=== PATIENT | male | born 1950 | race Caucasian/White ===

== ENCOUNTER 2019-05-29 08:46 | Outpatient (REF) | payer OTHER, MEDICARE, SELFPAY ==
[2019-05-29 22:50] LABS: ALT 77 U/L (12-78); AST 29 U/L (15-37); Albumin 4.4 g/dL (3.4-5.0); Alkaline Phosphatase 92 U/L (46-116); Anion Gap 10.6 mmol/L (3-11); BUN 8 mg/dL (7-18); Bilirubin, Direct 0.15 mg/dL (0.00-0.20); Bilirubin, Total 0.7 mg/dL (0.2-1.0); CO2 29.4 mmol/L (21.0-32.0); CREATININE 0.93 mg/dL (0.70-1.30); Calcium 9.3 mg/dL (8.5-10.1); Chloride 101 mmol/L (98-107); Glucose 110 mg/dL (70-100); Potassium 4.2 mmol/L (3.5-5.1); Sodium 141 mmol/L (136-145); Total Protein 8.1 g/dL (6.4-8.2)
[2019-05-29 23:11] LABS: Calculated LDL 80 mg/dL; Cholesterol 159 mg/dL (50-200); HDL Cholesterol 57 mg/dL (40-60); Triglyceride 114 mg/dL (30-150)
== END 2019-05-29 09:06 ==
LOC: NCHCN 08:46
PROVIDERS: PCP Internal Medicine; Visit Provider Internal Medicine
DX: I25.10 Atherosclerotic heart disease of native coronary artery without angina pectoris (principal); Z13.6 Encounter for screening for cardiovascular disorders; F10.10 Alcohol abuse, uncomplicated
CPT/HCPCS: 80053; 80061; 80076; 83721

== ENCOUNTER 2020-06-23 15:23 | Outpatient (REF) | payer OTHER, MEDICARE, SELFPAY ==
[2020-06-23 21:05] LABS: Bilirubin Negative (Negative); Blood Trace-intact (Negative); Clarity Clear (Clear); Glucose Negative (Negative); Ketones Negative (Negative); Leukocyte Esterase Negative (Negative); Nitrite Negative (Negative); Specific Gravity 1.025 (1.005-1.025); Urobilinogen 0.2 EU/dL (Up TO 0.2)
[2020-06-23 21:11] LABS: Bacteria Negative HPF (Negative); C & S Indicated? No; Casts Negative LPF (Negative); Crystals Negative HPF (Negative); Epithelial Cells Rare HPF (Negative); Mucus Trace (Negative); WBC Negative HPF (0-5)
[2020-06-23 21:17] LABS: Hemoglobin A1C 5.5 % (<5.7)
[2020-06-23 21:32] LABS: ALT 31 U/L (16-63); AST 22 U/L (15-37); Albumin 4.4 g/dL (3.4-5.0); Alkaline Phosphatase 90 U/L (46-116); Anion Gap 7.5 mmol/L (3-11); BUN 11 mg/dL (7-18); Bilirubin, Total 0.6 mg/dL (0.2-1.0); CO2 30.5 mmol/L (21.0-32.0); CREATININE 0.88 mg/dL (0.70-1.30); Calcium 9.2 mg/dL (8.5-10.1); Calculated LDL 77 mg/dL (<100); Chloride 103 mmol/L (98-107); Cholesterol 152 mg/dL (<200); Glucose 103 mg/dL (74-106); HDL Cholesterol 53 mg/dL (40-60); Sodium 141 mmol/L (136-145); Total Protein 7.9 g/dL (6.4-8.2); Triglyceride 112 mg/dL (<150)
[2020-06-24 18:40] LABS: PSA, Screening 0.5 ng/mL (0.0-4.5)
== END 2020-06-23 15:43 ==
LOC: NCHCN 15:23
PROVIDERS: PCP Internal Medicine; Visit Provider Internal Medicine
DX: R73.9 Hyperglycemia, unspecified (principal); I25.10 Atherosclerotic heart disease of native coronary artery without angina pectoris; M54.5 Low back pain; G20 Parkinson's disease; Z12.5 Encounter for screening for malignant neoplasm of prostate; R39.9 Unspecified symptoms and signs involving the genitourinary system
CPT/HCPCS: 80053; 80061; 84153; 81003; 81015; 83036

== ENCOUNTER 2021-05-11 08:58 | Outpatient (REF) | payer MEDICARE, SELFPAY ==
[2021-05-11 16:01] LABS: ALT 26 U/L (16-63); AST 14 U/L (15-37); Albumin 3.7 g/dL (3.4-5.0); Alkaline Phosphatase 90 U/L (46-116); Anion Gap 5.5 mmol/L (3-11); BUN 10 mg/dL (7-18); Bilirubin, Total 0.7 mg/dL (0.2-1.0); CO2 29.5 mmol/L (21.0-32.0); CREATININE 0.8 mg/dL (0.70-1.30); Calcium 8.9 mg/dL (8.5-10.1); Chloride 106 mmol/L (98-107); Glucose 103 mg/dL (74-106); Potassium 4.3 mmol/L (3.5-5.1); Sodium 141 mmol/L (136-145); TSH (W/Ref FT4) 1.46 uIU/mL (0.36-3.74); Total Protein 6.9 g/dL (6.4-8.2)
== END 2021-05-11 08:59 | disposition home or self-care (01) ==
LOC: NCHCN 08:58
PROVIDERS: PCP Internal Medicine; Visit Provider Internal Medicine
DX: E66.3 Overweight (principal); Z87.898 Personal history of other specified conditions
CPT/HCPCS: 80053; 84443

== ENCOUNTER 2022-04-02 18:55 | Outpatient (REF) | payer MEDICARE, SELFPAY ==
[2022-04-02 19:47] LABS: Bilirubin Negative (Negative); Blood Moderate (Negative); Clarity Sl Cloudy (Clear); Glucose Negative (Negative); Ketones Negative (Negative); Leukocyte Esterase Moderate (Negative); Nitrite Negative (Negative); Urobilinogen 0.2 EU/dL (Up TO 0.2)
[2022-04-02 19:59] LABS: Bacteria Many HPF (Negative); C & S Indicated? C&S Done As Ordered; Casts Negative LPF (Negative); Crystals Negative HPF (Negative); Epithelial Cells Few HPF (Negative); Mucus Negative (Negative); WBC >50 HPF (0-5)
== END 2022-04-02 18:56 | disposition home or self-care (01) ==
LOC: LBN 18:55
PROVIDERS: PCP Internal Medicine; Visit Provider Nurse Practitioner Gerontology
DX: R35.0 Frequency of micturition (principal)
CPT/HCPCS: 87077; 81003; 81015; 87086; 87186

== ENCOUNTER 2022-04-06 17:29 | Outpatient (REF) | payer SELFPAY ==
[2022-04-06 18:10] LABS: Abs Immature Grans 0.08 10^3/uL (0.0-0.06); Absolute Basophil Count 0.07 10^3/uL (0.0-0.2); Absolute Eosinophil Count 0.18 10^3/uL (0.0-0.7); Absolute Monocyte Count 0.63 10^3/uL (0.1-0.8); Absolute Neutrophil Count 5.44 10^3/uL (1.2-6.7); Basophils % 0.9; Eosinophils % 2.3; HCT 43.4 % (40.0-50.0); HGB 14.5 g/dL (13.5-17.5); Lymphocytes % 17.9; MCH 30.7 pg (27.0-33.0); MCHC 33.4 % (32.0-36.0); MCV 92 fL (80-95); MPV 8.9 fL (8.0-11.0); Monocytes % 8.1; Neutrophils % 69.8; Platelet Count 384 10^3/uL (130-400); RBC 4.73 10^6/uL (4.36-5.78); RDW 12.3 % (11.8-14.1); RDW-SD 41.9 fL
[2022-04-06 19:15] LABS: Iron 59 ug/dL (65-175); Total Iron Binding Capacity 256 ug/dL (250-450); Transferrin Sat 23 % (20-55)
[2022-04-06 19:38] LABS: ALT 21 U/L (16-63); AST 31 U/L (15-37); Albumin 3.7 g/dL (3.4-5.0); Alkaline Phosphatase 91 U/L (46-116); Anion Gap 9.8 mmol/L (3-11); BUN 15 mg/dL (7-18); Bilirubin, Total 0.3 mg/dL (0.2-1.0); CO2 28.2 mmol/L (21.0-32.0); CREATININE 1.1 mg/dL (0.70-1.30); Calcium 8.9 mg/dL (8.5-10.1); Chloride 102 mmol/L (98-107); Ferritin 518 ng/mL (26-388); Folate 2.4 ng/mL (8.6-20.0); Glucose 133 mg/dL (74-106); Magnesium 1.9 mg/dL (1.8-2.4); Potassium 4.2 mmol/L (3.5-5.1); Sodium 140 mmol/L (136-145); TSH (W/Ref FT4) 1.49 uIU/mL (0.36-3.74); Total Protein 7.5 g/dL (6.4-8.2); Vitamin B12 308 pg/mL (193-986)
[2022-04-07 17:48] LABS: PSA, Screening 9.8 ng/mL (<=6.5)
== END 2022-04-06 17:30 | disposition home or self-care (01) ==
LOC: LBN 17:29
PROVIDERS: PCP Internal Medicine; Visit Provider Nurse Practitioner Gerontology
DX: F10.988 Alcohol use, unspecified with other alcohol-induced disorder (principal); I10 Essential (primary) hypertension; Z12.5 Encounter for screening for malignant neoplasm of prostate; G20 Parkinson's disease; I25.10 Atherosclerotic heart disease of native coronary artery without angina pectoris; M62.81 Muscle weakness (generalized)
CPT/HCPCS: 80053; 82306; 84153; 82607; 82728; 82746; 83540; 83550; 83735; 84443; 85025

== ENCOUNTER 2022-04-13 17:54 | Outpatient (REF) | payer SELFPAY ==
[2022-04-16 12:48] LABS: Levetiracetam 37.1 mcg/mL
== END 2022-04-13 17:55 | disposition home or self-care (01) ==
LOC: LBN 17:54
PROVIDERS: PCP Internal Medicine; Visit Provider Nurse Practitioner Gerontology
DX: R68.89 Other general symptoms and signs (principal); G20 Parkinson's disease; R56.9 Unspecified convulsions; Z91.81 History of falling; Z51.81 Encounter for therapeutic drug level monitoring; Z79.899 Other long term (current) drug therapy
CPT/HCPCS: 80177

== ENCOUNTER 2022-04-16 15:09 | Inpatient (IN) | payer MEDICARE, OTHER, SELFPAY ==
[2022-04-16] VITALS (24 sets, daily range): BP systolic 126–170; BP diastolic 80–101; PULSE 69–79; RESP 12–20; TEMP 36.5–36.9; O2SAT 96–99
--- NOTE | 2022-04-16 15:30 | RT.EKG_ITS ---
APPROVED REPORT Exam: Resting ECG Reason for Exam: seizures Patient Location: E HR:77 bpm ECG Measurements Heart Rate 77 AXIS AR 173 P 17 QRSd 80 QRS -16 QT 386 T 7 QTc 436 Conclusion Sinus rhythm...normal P axis, V-rate 60- 99 Inferior infarct, old...Q >35mS, II III aVF sinus rhtym, left axis, normal intervals, non ischemic
--- NOTE | 2022-04-16 15:30 | DI.CT_ITS ---
Exam(s) CT HEAD WO EXAM: CT HEAD WO CLINICAL HISTORY: seizures, recurrent. TECHNIQUE: Imaging Protocol: Axial computed tomography images with coronal and sagittal reformatted images were created and reviewed COMPARISON: No exams were available for comparison FINDINGS: Ventricles and Extra axial spaces: Normal in size and morphology for the patient's age. Hemorrhage: None. Cerebral parenchyma: No acute territorial infarct. There are areas of decreased attenuation in the w mack matter most consistent with small vessel ischemic disease. Midline shift: None. Brainstem/Cerebellum: Normal. Calvarium: Normal. Visualized Paranasal sinuses/Mastoids: Clear. Soft Tissues: Unremarkable. IMPRESSION: 1. No acute intracranial process. 2. Results of this exam have been verbally communicated with provider. RADIATION DOSE DELIVERED: 832.81mGy.cm Total DLP DATA REPOSITORY: All CT scans at this facility are submitted to the National Radiology Data Registry (NRDR) Dose Index Registry (DIR) with the [employer] (A[employer]). RADIATION OPTIMIZATION: All CT scans at this facility use at least one of these dose optimization te chniques: automated exposure control; mA and/or kV adjustment per patient size (includes targeted exa ms where dose is matched to clinical indication); or iterative reconstruction.
--- NOTE | 2022-04-16 15:37 | DI.RAD_ITS ---
Exam(s) XR CHEST 1V IN DI DEPT EXAM: XR CHEST 1V IN DI DEPT CLINICAL HISTORY: AMS, recurrent seizures TECHNIQUE: 2D digital imaging was performed of the chest. One image was obtained. An AP view was ob tained. COMPARISON: No exams were available for comparison FINDINGS: MEDIASTINUM: Normal. HEART: Normal. PULMONARY VASCULATURE: Normal. LUNGS: Clear. PLEURAL SPACE: No pleural effusion or pneumothorax. BONE:Within normal limits for the patient's age. OTHER FINDINGS:Normal. IMPRESSION: No acute pulmonary findings. DATA REPOSITORY: RADIATION DOSE DELIVERED:
--- NOTE | 2022-04-16 15:50 | ED.GENADUL_ITS ---
Discharge Plan Disposition Patient Disposition: [facility] INPATIENT Condition: Improving Discharge Details Chief Complaint: AMS/LOC Clinical Impression: Seizure Primary Care Provider: Jaylin Norris ED Provider: Lon Bingham Home Meds and New Rx's Prescriptions: No Action levofloxacin [Levaquin] 750 mg Tablet 750 mg PO Q24W lorazepam [Ativan] 1 mg Tablet 1 mg PO 4XD atorvastatin 20 mg Tablet 20 mg PO DAILY baclofen 10 mg Tablet 10 mg PO BID PRN PRN nitroglycerin 0.4 mg Tablet, Sublingual 0.4 mg sublingual PRN PRN vitamin B complex [Super B Complex] Tablet 1 tab PO 1XD levetiracetam 750 mg Tablet 750 mg PO BID multivitamin with minerals Tablet 1 tab PO DAILY carbidopa-levodopa 25-100 mg Tablet 1 tab PO TID melatonin 5 mg Tablet 6 mg PO PRN PRN gabapentin 100 mg Capsule 100 mg PO QHS docusate sodium 100 mg Tablet 100 mg PO DAILY Medical Decision Making 71-year-old male history of seizure disorder, Parkinson's, transferred from the [facility] for medical evaluation of possible increased seizure activity, posturing and gaze preference more frequent over the last several days for , is on Keppra, was given Ativan at findings, follow-up with [facility] neurology, currently intermittently posturing right upper extremity in flexed position behind head as well as having a right gaze preference, no generalized tonic-clonic activity, hemodynamically stable and afebrile, appears slightly dry, likely in status epilepticus with partial seizures, must consider electrolyte abnormality versus intracranial process such as edema or hemorrhage however less likely versus component of delirium versus must consider UTI versus subtherapeutic on Keppra. Labs imaging will attempt to contact [facility] neurology patient will likely need continuous EEG will start patient on any telemetry would like to avoid further benzodiazepine given patient's age and mental status Patient loaded with fosphenytoin given likely subtherapeutic Keppra, has improved from mental status standpoint following commands moving all extremities much more coherent and interactive with his speech. Spoke with [facility] neurology and attempt to have patient transferred for continuous EEG given concern for 2 to 3 days of status epilepticus. Given capacity issue at [facility] they are unable to accept him at this time however I was able to consult with Evi Rodriguez of neurology who suggests increasing patient's Keppra to 1500 mg twice daily and says that we can discontinue the fosphenytoin at this time. If seizure activity worsens/continues Dr. Steve says to reach back out this weekend and they will be able to reconsider taking patient for stat EEG. Patient and family are amenable to this plan. Patient be admitted for close observation and loading of Keppra. HPI General Date/Time Provider Initiated Documentation: 04/16/22 15:22 . HPI Narrative: 71-year-old history of seizures previously worked [facility] currently in rehabilitation at times, transferred here for medical evaluation of possible recurrent seizure disorder, is noted recurrent more frequent episodes of posturing as well as right gaze preference over the past several days, stiff compliance had to give patient 1 mg due to violent outburst earlier today. Patient is currently on Keppra. Follows with Dr. Moon of neurology at [facility] Related Data Home Medications Medication Instructions Recorded Confirmed atorvastatin 20 mg tablet 20 mg PO DAILY 04/16/22 04/16/22 baclofen 10 mg tablet 10 mg PO BID PRN PRN 04/16/22 04/16/22 carbidopa 25 mg-levodopa 100 mg 1 tab PO TID 04/16/22 04/16/22 tablet docusate sodium 100 mg tablet 100 mg PO DAILY 04/16/22 04/16/22 gabapentin 100 mg capsule 100 mg PO QHS 04/16/22 04/16/22 levetiracetam 750 mg tablet 750 mg PO BID 04/16/22 04/16/22 levofloxacin 750 mg tablet 750 mg PO Q24W 04/16/22 04/16/22 lorazepam 1 mg tablet (Ativan) 1 mg PO 4XD 04/16/22 04/16/22 melatonin 5 mg tablet 6 mg PO PRN PRN 04/16/22 04/16/22 multivitamin with minerals 1 tab PO DAILY 04/16/22 04/16/22 nitroglycerin 0.4 mg sublingual 0.4 mg sublingual PRN PRN 04/16/22 04/16/22 tablet vitamin B complex 1 tab PO 1XD 04/16/22 04/16/22 General Stated Complaint: AMS/LOC SHIRA: 2 Review of Systems Narrative: Review of Systems Constitutional: Altered mental status Eyes: negative ENT: negative Cardiovascular: negative Respiratory: negative Gastrointestinal: negative : negative Musculoskeletal: negative Skin: negative Neurologic: Seizures Psych: negative PFSH All Active Problems (Updated 04/16/22 @ 18:32 by Lon Bingham MD) Seizure (Acute) Social History Smoking/Tobacco Use Status: Unknown Smoking risk assessment performed?: Yes Additional Social history: patient unable to answer questions. Exam Narrative Exam Narrative: Physical Examination General: Awake interactive HEENT: normocephalic, atraumatic; PERRL, EOM intact, right gaze preference, conjunctiva normal; no nasal discharge, slight drying of oral mucosa Neck: supple, trachea midline; full ROM Chest: normal to inspection Respiratory: normal respiratory effort, speaking in full sentences, clear to auscultation, no wheezing, rales or rhonchi Cardiac: regular rate, regular rhythm, S1S2 intact, no murmurs rubs or gallops GI: abdomen soft, non-tender, non-distended; no palpable mass or hepatospl enomegaly Skin: Slight drying of skin Neuro: Patient is not alert and oriented, has slow confused speech, moving all extremities to command, intermittently with right gaze preference and posturing of right upper extremity but Extremities: No peripheral edema Psych: Appropriate mood and affect Course Vital Signs Vital signs: Vital Signs Temperature 36.9 C 04/16/22 15:11 Pulse 73 04/16/22 15:11 Respiratory Rate 20 04/16/22 15:11 Blood Pressure 126/80 04/16/22 15:11 Pulse Oximetry 99 04/16/22 15:11 Temperature 36.9 C 04/16/22 15:11 Temperature Source Skin 04/16/22 15:11 Pulse 73 04/16/22 15:11 Respiratory Rate 20 04/16/22 15:17 Respiratory Effort Non-Labored 04/16/22 15:17 Respiratory Depth Normal 04/16/22 15:17 Respiratory Pattern Normal 04/16/22 15:17 Blood Pressure 126/80 04/16/22 15:11 Blood Pressure Position Supine 04/16/22 15:11 Pulse Oximetry 99 04/16/22 15:11 Oxygen Delivery Method Room Air 04/16/22 15:11 Oxygen Flow Rate 0 04/16/22 15:11
[2022-04-16] MEDS: Normal Saline 1,000 ML 1000 ML IV (16:02)
[2022-04-16 16:05] LABS: Abs Immature Grans 0.06 10^3/uL (0.0-0.06); Absolute Basophil Count 0.07 10^3/uL (0.0-0.2); Absolute Monocyte Count 0.81 10^3/uL (0.1-0.8); Absolute Neutrophil Count 5.17 10^3/uL (1.2-6.7); Basophils % 0.9; Eosinophils % 2.6; HGB 13.3 g/dL (13.5-17.5); Immature Grans % 0.8; Lymphocytes % 19.2; MCH 30.9 pg (27.0-33.0); MCHC 34.1 % (32.0-36.0); MCV 91 fL (80-95); MPV 8.6 fL (8.0-11.0); Monocytes % 10.4; Neutrophils % 66.1; Platelet Count 327 10^3/uL (130-400); RDW 12.2 % (11.8-14.1); RDW-SD 40.2 fL; WBC 7.81 10^3/uL (4.4-10.8)
[2022-04-16 16:16] LABS: PTT Activated 26.8 sec (21.0-27.5); Prothrombin Time 11.5 sec (9.3-11.0)
[2022-04-16 16:17] LABS: INR 1.1 (0.9-1.1)
[2022-04-16 16:25] LABS: ALT 9 U/L (16-63); AST 22 U/L (15-37); Albumin 3.3 g/dL (3.4-5.0); Alkaline Phosphatase 83 U/L (46-116); Anion Gap 8.3 mmol/L (3-11); BUN 11 mg/dL (7-18); Bilirubin, Total 0.4 mg/dL (0.2-1.0); CO2 26.7 mmol/L (21.0-32.0); CREATININE 0.8 mg/dL (0.70-1.30); Calcium 8.7 mg/dL (8.5-10.1); Chloride 105 mmol/L (98-107); Glucose 99 mg/dL (74-106); Potassium 4.1 mmol/L (3.5-5.1); Sodium 140 mmol/L (136-145); Total Protein 7.3 g/dL (6.4-8.2)
[2022-04-16 16:35] LABS: Magnesium 2.1 mg/dL (1.8-2.4); TSH (W/Ref FT4) 1.18 uIU/mL (0.36-3.74); Troponin I < 50 ng/L (<or=60)
[2022-04-16 17:22] LABS: Bilirubin Negative (Negative); Blood Negative (Negative); Clarity Clear (Clear); Glucose Negative (Negative); Ketones Negative (Negative); Leukocyte Esterase Negative (Negative); Nitrite Negative (Negative); Urobilinogen 0.2 EU/dL (Up TO 0.2)
--- NOTE | 2022-04-16 18:33 | HPE_ITS ---
Date of service: 04/16/22 Time of Service: 18:33 Assessment and Plan Assessment and plan (1) Seizure: Status: Chronic Assessment and plan: This is a 71-year-old gentleman who has a history of seizure disorder and over the last week has had worsening mental status thought to be secondary to possible UTI or his Parkinson's disease but was found to have seizures and most likely having post ictal confusion as part of the change in status. With consultation with neurology at [facility] the patient had his Keppra increased and this will be continued with dosing 300 mg twice daily after loading dose in the ED. At the time I saw the patient he was at baseline without any seizure activity but his Parkinson's. (2) Parkinson's disease: Status: Chronic Assessment and plan: Chronic on medical therapy with some behavioral abnormalities. Ativan as needed. Continue to outpatient medication. (3) Cognitive impairment: Status: Acute Assessment and plan: Acute exacerbation of probable baseline problems associated with Parkinson disease. Continue Ativan as needed and treatment for Parkinson's disease. History of Present Illness History of Present Illness Chief Complaint: Uncontrolled seizure disorder Narrative: This is a 71-year-old male patient who lives in local [facility] who was brought to the ED because of seizures. He was found to be subtherapeutic on his Keppra and loaded with IV Keppra with an increase in dosing after consultation with [facility] neurology. If the patient is not doing well with increasing Keppra and controlling seizures, [facility] neurology said that they could take the patient in transfer for continuous EEG and treatment over the weekend. Patient is a full code. In the ED patient was found to have no other ongoing issues other than exacerbation of his dementia and possible behavioral abnormalities which was thought to be occurring in the [facility]. They thought also the patient may have had a UTI and restarted Levaquin which was not continued with urine being clean in the ED upon admission. He still has slight agitation and Ativan will be used as needed. His Parkinson's disease is advanced with some dementia accor ding to the . See ED review below: 71-year-old male history of seizure disorder, Parkinson's, transferred from the [facility] for medical evaluation of possible increased seizure activity, posturing and gaze preference more frequent over the last several days for , is on Keppra, was given Ativan at findings, follow-up with [facility] neurology, currently intermittently posturing right upper extremity in flexed position behind head as well as having a right gaze preference, no generalized tonic-clonic activity, hemodynamically stable and afebrile, appears slightly dry, likely in status epilepticus with partial seizures, must consider electrolyte abnormality versus intracranial process such as edema or hemorrhage however less likely versus component of delirium versus must consider UTI versus subtherapeutic on Keppra.? Labs imaging will attempt to contact [facility] neurology patient will likely need continuous EEG will start patient on any telemetry would like to avoid further benzodiazepine given patient's age and mental status Patient loaded with fosphenytoin given likely subtherapeutic Keppra, has improved from mental status standpoint following commands moving all extremities much more coherent and interactive with his speech.? Spoke with [facility] neurology and attempt to have patient transferred for continuous EEG given concern for 2 to 3 days of status epilepticus.? Given capacity issue at [facility] they are unable to accept him at this time however I was able to consult with Evi Rodriguez of neurology who suggests increasing patient's Keppra to 1500 mg twice daily and says that we can discontinue the fosphenytoin at this time.? If seizure activity worsens/continues Dr. Steve says to reach back out this weekend and they will be able to reconsider taking patient for stat EEG.? Patient and family are amenable to this plan.? Patient be admitted for close observation and loading of Keppra. Review of Systems Narrative: 13 point review of systems otherwise unobtainable with patient nonverbal and not at bedside. History was taken from . PFSH All Active Problems (Updated 04/17/22 @ 07:00 by Mic Price) Cognitive impairment (Acute) Parkinson's disease (Chronic) Seizure (Chronic) Social History Smoking/Tobacco Use Status: Unknown Smoking risk assessment performed?: Yes Additional Social history: patient unable to answer questions. Meds Allergies and Home Medications Allergies Allergy/AdvReac Type Severity Reaction Status Date / Time No Known Allergies Allergy Unverified 04/16/22 20:47 Home Medications Medication Instructions Recorded Confirmed Type atorvastatin 20 mg tablet 20 mg PO DAILY 04/16/22 04/16/22 History baclofen 10 mg tablet 10 mg PO BID PRN PRN 04/16/22 04/16/22 History carbidopa 25 mg-levodopa 100 mg 1 tab PO TID 04/16/22 04/16/22 History tablet docusate sodium 100 mg tablet 100 mg PO DAILY 04/16/22 04/16/22 History gabapentin 100 mg capsule 100 mg PO QHS 04/16/22 04/16/22 History levetiracetam 750 mg tablet 750 mg PO BID 04/16/22 04/16/22 History levofloxacin 750 mg tablet 750 mg PO Q24W 04/16/22 04/16/22 History lorazepam 1 mg tablet (Ativan) 1 mg PO 4XD 04/16/22 04/16/22 History melatonin 5 mg tablet 6 mg PO PRN PRN 04/16/22 04/16/22 History multivitamin with minerals 1 tab PO DAILY 04/16/22 04/16/22 History nitroglycerin 0.4 mg sublingual 0.4 mg sublingual PRN PRN 04/16/22 04/16/22 History tablet vitamin B complex 1 tab PO 1XD 04/16/22 04/16/22 History Exam Narrative Exam Narrative: General: Patient appears older than stated age, eyes closed with masklike facies. He is not responding appropriately with minimal conversation. HEENT: Normocephalic, eyes with pupils equal and reactive to light symmetrically with eyes open occasionally. Extraocular movement intact. Sclera anicteric. Oropharynx with moist mucosa. Neck: Supple without JVD. Back: Not examined patient supine in bed. Lungs: Fair aeration and clear to anterior auscultation. Heart: Regular rate and rhythm with no appreciable murmur or gallop. Abdomen: Obese contour, soft nontender to palpation with no guarding or rebound. No palpable hepatosplenomegaly. Genitalia/rectal: Exam deferred with patient wearing adult diaper. There is adhesive over the inner thighs bilaterally with probable previous catheter and taping. Extremities: Without clubbing, cyanosis or pitting edema. Neuro: Rigid movement of extremities with left having slight tremor over the upper extremity. Cranial nerves II to XII appear to be grossly intact. No focal motor noted. Patient moves all extremities. Skin: Pale, warm and dry. Psych: Patient is withdrawn and evaluation obtainable. Patient is agitated at times according to nurses. Results Imaging Imaging Studies: EXAM: ? CT HEAD WO CLINICAL HISTORY: ? seizures, recurrent. ? TECHNIQUE:? Imaging Protocol: Axial computed tomography images with coronal and sagittal reformatted images were created and reviewed COMPARISON:? No exams were available for comparison FINDINGS: Ventricles and Extra axial spaces: Normal in size and morphology for the patient's age. Hemorrhage: None. Cerebral parenchyma: No acute territorial infarct.? There are areas of decreased attenuation in the white matter most consistent with small vessel ischemic disease.? Midline shift: None. Brainstem/Cerebellum: Normal. Calvarium: Normal. Visualized Paranasal sinuses/Mastoids: Clear. Soft Tissues: Unremarkable. IMPRESSION: 1. No acute intracranial process.? 2. Results of this exam have been verbally communicated with provider. EXAM:? XR CHEST 1V IN DI DEPT CLINICAL HISTORY:? AMS, recurrent seizures TECHNIQUE:? 2D digital imaging was performed of the chest. One image was obtained.? An AP view was obtained. COMPARISON:? No exams were available for comparison FINDINGS: MEDIASTINUM: Normal.? HEART: Normal. PULMONARY VASCULATURE: Normal. LUNGS: Clear.? PLEURAL SPACE: No pleural effusion or pneumothorax. BONE:Within normal limits for the patient's age. OTHER FINDINGS:Normal.? IMPRESSION: No acute pulmonary findings. Labs Result diagrams: 04/16/22 15:50 04/16/22 15:50 Labs: Laboratory Results - last 24 hr 04/16/22 04/16/22 04/16/22 15:50 15:50 15:50 WBC 7.81 RBC 4.30 L Hgb 13.3 L Hct 39.0 L MCV 91 MCH 30.9 MCHC 34.1 RDW 12.2 Plt Count 327 MPV 8.6 Immature Gran % 0.8 Neutrophils % 66.1 Lymphocytes % 19.2 Monocytes % 10.4 Eosinophils % 2.6 Basophils % 0.9 Nucleated RBC % 0.0 Absolute Neutrophils 5.17 Absolute Lymphocytes 1.50 Absolute Monocytes 0.81 H Absolute Eosinophils 0.20 Absolute Basophils 0.07 PT INR APTT Sodium 140 Potassium 4.1 Chloride 105 Carbon Dioxide 26.7 Anion Gap 8.3 BUN 11 Creatinine 0.8 Estimated GFR/1.73 m2 >= 60.00 Glucose 99 Calcium 8.7 Magnesium 2.1 Total Bilirubin 0.4 AST 22 ALT 9 L Alkaline Phosphatase 83 Troponin I < 50 Total Protein 7.3 Albumin 3.3 L TSH 1.18 Urine Color Urine Clarity Urine pH Ur Specific [place] Urine Protein Urine Ketones Urine Blood Urine Nitrite Urine Bilirubin Urine Urobilinogen Ur Leukocyte Esterase Urine Glucose 04/16/22 04/16/22 15:50 16:15 WBC RBC Hgb Hct MCV MCH MCHC RDW Plt Count MPV Immature Gran % Neutrophils % Lymphocytes % Monocytes % Eosinophils % Basophils % Nucleated RBC % Absolute Neutrophils Absolute Lymphocytes Absolute Monocytes Absolute Eosinophils Absolute Basophils PT 11.5 H INR 1.1 APTT 26.8 Sodium Potassium Chloride Carbon Dioxide Anion Gap BUN Creatinine Estimated GFR/1.73 m2 Glucose Calcium Magnesium Total Bilirubin AST ALT Alkaline Phosphatase Troponin I Total Protein Albumin TSH Urine Color Yellow Urine Clarity Clear Urine pH 7.0 Ur Specific [place] 1.020 Urine Protein Negative Urine Ketones Negative Urine Blood Negative Urine Nitrite Negative Urine Bilirubin Negative Urine Urobilinogen 0.2 Ur Leukocyte Esterase Negative Urine Glucose Negative Last Vital Signs Temp 36.9 C 04/16/22 15:11 Pulse 79 04/16/22 16:31 Resp 13 04/16/22 16:35 BP 136/94 H 04/16/22 16:31 Pulse Ox 96 04/16/22 16:28
[2022-04-16 20:16] LABS: Source Nasal/Nares
[2022-04-16 21:07] LABS: COVID-19 PCR Negative (Negative)
[2022-04-16] MEDS: Melatonin 3 MG TAB 6 MG PO (22:02)
[2022-04-16] MEDS: Gabapentin 100 MG CAP PO (22:02)
[2022-04-16] MEDS: Carbidopa 25/Levodopa 100 TAB PO (22:02)
[2022-04-16] MEDS: Heparin 5,000 UNITS/ML VIAL 5000 UNITS SC (22:03)
[2022-04-16] MEDS: LORazepam 0.5 MG TAB PO (23:13)
--- NOTE | 2022-04-16 23:40 | NUR.NOTE ---
Nursing Note: After patient removing Telemetry device multiple times, and ripping 2nd IV out, this evening; MD ordered 0.5mg PO Ativan for increased restlessness/ agitation. Medication crushed and mixed in a small spoonful of pudding and administered with ease. Pad alarm on highest sensitivity and will continue to monitor closely.
[2022-04-17] VITALS (8 sets, daily range): BP systolic 102–155; BP diastolic 73–98; PULSE 65–90; RESP 18; TEMP 36.2–37; O2SAT 95–98
[2022-04-17] MEDS: Heparin 5,000 UNITS/ML VIAL 5000 UNITS SC ×3 (06:04→19:30)
[2022-04-17 07:14] LABS: Abs Immature Grans 0.04 10^3/uL (0.0-0.06); Absolute Basophil Count 0.07 10^3/uL (0.0-0.2); Absolute Eosinophil Count 0.17 10^3/uL (0.0-0.7); Absolute Lymphocyte Count 1.27 10^3/uL (1.2-3.4); Absolute Monocyte Count 0.73 10^3/uL (0.1-0.8); Absolute Neutrophil Count 4.85 10^3/uL (1.2-6.7); Eosinophils % 2.4; HCT 42.7 % (40.0-50.0); Immature Grans % 0.6; Lymphocytes % 17.8; MCH 31.3 pg (27.0-33.0); MCHC 35.1 % (32.0-36.0); MCV 89 fL (80-95); MPV 8.5 fL (8.0-11.0); Monocytes % 10.2; Platelet Count 319 10^3/uL (130-400); RDW-SD 39.8 fL; WBC 7.13 10^3/uL (4.4-10.8)
[2022-04-17 07:30] LABS: ALT 16 U/L (16-63); AST 19 U/L (15-37); Albumin 3.3 g/dL (3.4-5.0); Alkaline Phosphatase 79 U/L (46-116); Anion Gap 6.9 mmol/L (3-11); BUN 9 mg/dL (7-18); Bilirubin, Total 0.4 mg/dL (0.2-1.0); CO2 28.1 mmol/L (21.0-32.0); CREATININE 0.9 mg/dL (0.70-1.30); Calcium 8.8 mg/dL (8.5-10.1); Chloride 106 mmol/L (98-107); Glucose 93 mg/dL (74-106); Potassium 4.1 mmol/L (3.5-5.1); Sodium 141 mmol/L (136-145); Total Protein 7.2 g/dL (6.4-8.2)
[2022-04-17] MEDS: levETIRAcetam 500 MG TAB 1500 MG PO ×2 (08:09→19:30)
[2022-04-17] MEDS: Multivitamin w/Minerals TAB 1 TAB PO (08:10)
[2022-04-17] MEDS: Docusate Sodium 100 MG CAP PO (08:10)
[2022-04-17] MEDS: Atorvastatin 20 MG TAB PO (08:10)
[2022-04-17] MEDS: Carbidopa 25/Levodopa 100 TAB PO ×3 (08:10→19:30)
[2022-04-17] MEDS: Vitamins B Comp w/C TAB 1 TAB PO (08:10)
--- NOTE | 2022-04-17 08:35 | IN_ITS ---
PT Notes Visit Reasons: Uncontrolled Seizure Disorder Inpatient Physical Therapy Evaluation Date: 04/17/22 Referring Doctor: Mic Priec PT Orders: PT CONSULT: exacerbation of chronic condition Precautions: fall, seizure, standard Patient Profile/Admitting Diagnosis: Patient admitted from the [facility] for medical management following seizure. Patient has advanced Parkinson's disease, managed on Sinemet. PMHX: PD seizures Social History/Home Situation: Resident of [facility]. is supportive and present for portion of evaluation. Equipment Owned/DME: resident of [facility]. reports that he utilizes FWW or cane at baseline. Subjective: Patient is alert and cooperative, and agreeable to PT consultation. He denies pain or dizziness. Objective: General Observation: Sitting up in chair at initiation of session. No lines. Mental Status: Alert. Oriented to person, but not place. Pain: denies ROM: Right Upper Extremity: WFL Left Upper Extremity: WFL Right Lower Extremity: WFL Left Lower Extremity: WFL Strength: Right Upper Extremity: Grossly 3/5 for all motions. Unable to follow commands for MMT Left Upper Extremity: Grossly 3/5 for all motions. Unable to follow commands for MMT Right Lower Extremity: Able to functionally demonstrate SLR, heel slide and ankle pump Left Lower Extremity: Able to functionally demonstrate SLR, heel slide and ankle pump Bed Mobility/Transfers: sit-stand: initially demonstrates slow transfer, with need for min A and cues for hand placement. With simple cues for large amplitude movement, he demonstrates improved safety and speed, with need for CGA only. stand-sit: CGA, with cues for amplitude as noted above Gait: Patient ambulates 6' with FWW and mod A x 1. Initially requires only CGA and cues for amplitude, although becomes distracted by clothing and shows diminished quality of gait as a result. With simple commands, he's able to complete ambulation safely with mod A. Balance: Static Sitting: good Dynamic Sitting: good Static Standing: fair Dynamic Standing: fair Special Tests: Mobility Limitations Standardized Measure [facility] AM-PAC 6 clicks Basic Mobility Inpatient Short Form: Raw Score: 16 CMS Score: 54% imairment Informed Consent/Education: Patient instructed in purpose of PT consult and plan of care. Treatment: Sit-stand x 6, cues for amplitude standing december, seconds x 2, cues for amplitude Assessment: Patient is a 71 year old male referred to physical therapy services with the diagnosis of exacerbation of chronic condition. Patient presents with clinical signs and symptoms consistent with acute on chronic mobility issues, with underlying PD and seizure disorder. Patient was seen at time of his first Sinemet dosing today, putting him in off time, however, was able to respond well to simple commands for amplitude, significantly improving his safety and mobility. He did struggle with cognitive load, with diminished safety with distr action, requiring mod A during ambulation as a result. He currently demonstrated by the following impairment level findings: 1. gait impairments 2. safety impairments due to cognition Impairments are contributing to the following functional limitations: 1. gait impairments 2. safety impairments due to cognition 3. decreased independence with transfers Patient is assessed Moderate [id number] based on the following: History: Patient is a 71 year old male, presenting with mobility impairments related to advanced PD and seizures. Mobility impacted by cognitive impairment. Once medically stable, patient will benefit from return to the [facility] for continued rehabilitation, as supported by AM-PAC score of 16/24. Examination: functional limitations as noted above Presentation: evolving Decision Making: moderate complexity Goals: Goals X1 week 1. Supine-Sit : supervision 2. Sit-Supine : supervision 3. Sit-Stand : supervision with FWW 4. Stand-Sit : supervision with FWW 5. Bed-Chair : CGA with FWW 6. Chair-Bed : CGA with FWW 7. Gait : CGA with FWW x 20' Plan of Care/Treatment Plan: 1-2x/day, 7 days/week x 1 week. Plan of care has been reviewed with the [employer] providing the service under Physical Therapy direction. Initiate Physical Therapy intervention for strengthening, bed mobility, transfers, gait, stairs, balance training, use of assistive device. DISCHARGE RECOMMENDATIONS: [employer] Care : return to the [facility] TREATMENT CODE/TIME: 8:10 - 8:35 ([id number]) Dorita Flores, PT, DPT [facility]
[2022-04-17 08:43] LABS: Lab Add On Test DONE
[2022-04-17 08:58] LABS: Creatine Kinase 59 U/L (39-308)
[2022-04-17] MEDS: LORazepam 0.5 MG TAB PO ×2 (11:52→19:30)
--- NOTE | 2022-04-17 11:55 | PDOC.CMIN ---
- If Service Date Differs Date of service: 04/17/22 Time of Service: 11:55 Care Management Initial Assess REASON FOR HOSPITALIZATION:: Uncontrolled seizure disorder. PAST MEDICAL HISTORY/PAST SURGICAL HISTORY:: All Active Problems: Cognitive impairment (Acute), Parkinson's disease (Chronic), and Seizure (Chronic). No Medical or Surgical History noted in chart. PREVIOUS FUNCTIONAL STATUS/SOCIAL/FAMILY SUPPORTS:: Claudio is a 71 year old male who was admitted to the [facility] on April 01, 2022 for rehab after having a stroke like episode, according to his , Fernanda. Prior to going to rehab, Claudio resided in [place] with his of 50 years. The couple has two sons: Frank who lives in [place], [place] and Maximilian who resides in [place]. Fernanda reports that Claudio was diagnosed with Parkinsons in 2014. Up until the end of February 2022, Claudio was independent with his ADLs and walked approximately a mile a day with his dog, Wing. 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 CURRENT FUNCTIONAL STATUS:: Claudio is asleep when CM comes to meet with him. His , Fernanda, is present in the room and she provides all of the information for this assessment. ADVANCE DIRECTIVES:: On file; Fernanda is appointed as Health Care Agent. Has patient been provided with info about the portal/API?: No Did the patient sign up for the portal?: No CODE STATUS:: Full Code INSURANCE COVERAGE / FINANCIAL ISSUES:: Medicare. CURRENT HOME/COMMUNITY SERVICES/EQUIPMENT:: Claudio is currently residing at the [facility] where he has the support of the staff. His , Fernanda, reports that Claudio was independent with his ADLs prior to going to the [facility]. Claudio owns a walking stick. PRIMARY CARE PHYSICIAN:: Jaylin Norris MD ([facility]). POTENTIAL DISCHARGE NEEDS:: Follow up appointment with neurology. PATIENT/FAMILY EDUCATION NEEDS:: Review discharge instructions with patient and his . ANTICIPATED BARRIERS TO DISCHARGE:: No anticipated barriers at this time. TRANSPORTATION:: Via EMS. PLAN:: Claudio will likely be discharged back to the [facility] when medically cleared by provider. He will follow up with neurology and his discharge plan of care as instructed. He will be transported via EMS when ready. CM will continue to follow.
--- NOTE | 2022-04-17 12:24 | NUR.NOTE ---
Nursing Note: Patient became agitated and sexually inappropriate towards female staff. He grabbed onto my hand and squeezed hard onto my left hand and refused to let go. Patient attempted to grab my scissors out my pocket. peer behavioral pediatrician took the scissors and removed them form the room. We were able to guide patient back to the recliner and he sat down. he agreed to take medication. One on one was provided for a time after to ensure patient safety
--- NOTE | 2022-04-17 16:44 | W.PM.PROGNOT ---
Date of Service Date of service: 04/17/22 Time of Service: 16:44 Assessment and Plan Assessment and plan (1) Seizure: Status: Chronic Assessment and plan: Continue increased dose of keppra, per [facility] recommendations. Planned for an EEG and neurology consult on Tuesday. Previously hospitalized at [facility] for continuous EEG. The patient has no evidence of UTI - it was ruled out with a negative UA in the ED. (2) Parkinson's disease: Status: Chronic Assessment and plan: Continue sinemet. Consider increase dose. Consult neurology. PT consult. 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 However, I cannot rule out post-ictal state. Defer to neurology. (4) Dementia with behavioral disturbance: Status: Suspected Assessment and plan: As above. Continue prn ativan - effective. (5) DVT prophylaxis: Status: Acute Assessment and plan: SC heparin (6) Discharge planning issues: Status: Acute Assessment and plan: Full code at this time Admit to inpatient status. Subjective Subjective Interval history since last seen: Mr Upton was agitated around noon, but then spent the rest of the afternoon resting in the chair. He did get ativan for this. Per , the patient has been like this since March 23. She describes his seizures as staring spells with posturing. Mr Upton, when he woke up during my visit, endorsed some dizziness, denied chest pain, shortness of breath, nausea. Exam Narrative Exam Narrative: General: Elderly male who is sleeping in a chair, slow to wake up, A&Ox1, slurring words slightly, hypotonic HEENT: Looking preferrentially to the R, ?slight R facial droop Heart: RRR, no m/r/g Lungs: Diminshed breath sounds anteriorly Abdomen: soft, nontender, nondistended Extremities: no edema, clubbing, or cyanosis of BLEs. Objective Last Vital Signs Temp 36.3 C L 04/17/22 15:54 Pulse 89 04/17/22 15:54 Resp 18 04/17/22 15:54 BP 107/78 04/17/22 15:54 Pulse Ox 97 04/17/22 15:54 Laboratory Results - last 24 hr 04/16/22 04/16/22 04/17/22 16:15 20:13 06:50 WBC RBC Hgb Hct MCV MCH MCHC RDW Plt Count MPV Immature Gran % Neutrophils % Lymphocytes % Monocytes % Eosinophils % Basophils % Nucleated RBC % Absolute Neutrophils Absolute Lymphocytes Absolute Monocytes Absolute Eosinophils Absolute Basophils Sodium 141 Potassium 4.1 Chloride 106 Carbon Dioxide 28.1 Anion Gap 6.9 BUN 9 Creatinine 0.9 Estimated GFR/1.73 m2 >= 60.00 Glucose 93 Calcium 8.8 Total Bilirubin 0.4 AST 19 ALT 16 Alkaline Phosphatase 79 Creatine Kinase Total Protein 7.2 Albumin 3.3 L Urine Color Yellow Urine Clarity Clear Urine pH 7.0 Ur Specific Bernice 1.020 Urine Protein Negative Urine Ketones Negative Urine Blood Negative Urine Nitrite Negative Urine Bilirubin Negative Urine Urobilinogen 0.2 Ur Leukocyte Esterase Negative Urine Glucose Negative COVID-19 Source Nasal/Nares SARS-CoV-2 (PCR) Negative Add-On Test Request 04/17/22 04/17/22 04/17/22 06:50 06:50 06:50 WBC 7.13 RBC 4.80 Hgb 15.0 Hct 42.7 MCV 89 MCH 31.3 MCHC 35.1 D RDW 12.0 Plt Count 319 MPV 8.5 Immature Gran % 0.6 Neutrophils % 68.0 Lymphocytes % 17.8 Monocytes % 10.2 Eosinophils % 2.4 Basophils % 1.0 Nucleated RBC % 0.0 Absolute Neutrophils 4.85 Absolute Lymphocytes 1.27 Absolute Monocytes 0.73 Absolute Eosinophils 0.17 Absolute Basophils 0.07 Sodium Potassium Chloride Carbon Dioxide Anion Gap BUN Creatinine Estimated GFR/1.73 m2 Glucose Calcium Total Bilirubin AST ALT Alkaline Phosphatase Creatine Kinase 59 Total Protein Albumin Urine Color Urine Clarity Urine pH Ur Specific Bernice Urine Protein Urine Ketones Urine Blood Urine Nitrite Urine Bilirubin Urine Urobilinogen Ur Leukocyte Esterase Urine Glucose COVID-19 Source SARS-CoV-2 (PCR) Add-On Test Request DONE
[2022-04-17] MEDS: Melatonin 3 MG TAB 6 MG PO (19:30)
[2022-04-17] MEDS: Gabapentin 100 MG CAP PO (19:42)
[2022-04-18] VITALS (142 sets, daily range): BP systolic 99–151; BP diastolic 55–101; PULSE 62–93; RESP 11–20; TEMP 36.1–36.9; O2SAT 92–98
[2022-04-18] MEDS: LORazepam 0.5 MG TAB PO ×4 (01:19→23:37)
[2022-04-18] MEDS: Heparin 5,000 UNITS/ML VIAL 5000 UNITS SC ×3 (05:26→22:00)
[2022-04-18 06:56] LABS: Abs Immature Grans 0.04 10^3/uL (0.0-0.06); Absolute Basophil Count 0.08 10^3/uL (0.0-0.2); Absolute Eosinophil Count 0.22 10^3/uL (0.0-0.7); Absolute Lymphocyte Count 1.75 10^3/uL (1.2-3.4); Absolute Monocyte Count 0.95 10^3/uL (0.1-0.8); Absolute Neutrophil Count 5.04 10^3/uL (1.2-6.7); Eosinophils % 2.7; HCT 39.9 % (40.0-50.0); HGB 13.6 g/dL (13.5-17.5); Immature Grans % 0.5; Lymphocytes % 21.7; MCH 30.9 pg (27.0-33.0); MCHC 34.1 % (32.0-36.0); MCV 91 fL (80-95); MPV 8.8 fL (8.0-11.0); Monocytes % 11.8; Neutrophils % 62.3; Platelet Count 304 10^3/uL (130-400); RDW 12.1 % (11.8-14.1); RDW-SD 40.2 fL; WBC 8.08 10^3/uL (4.4-10.8)
[2022-04-18 07:11] LABS: Anion Gap 6.8 mmol/L (3-11); BUN 14 mg/dL (7-18); CO2 29.2 mmol/L (21.0-32.0); CREATININE 0.9 mg/dL (0.70-1.30); Calcium 8.9 mg/dL (8.5-10.1); Chloride 104 mmol/L (98-107); Glucose 94 mg/dL (74-106); Magnesium 2.2 mg/dL (1.8-2.4); Potassium 3.9 mmol/L (3.5-5.1); Sodium 140 mmol/L (136-145)
[2022-04-18] MEDS: Carbidopa 25/Levodopa 100 TAB PO ×3 (08:22→19:31)
[2022-04-18] MEDS: levETIRAcetam 500 MG TAB 1500 MG PO ×2 (08:22→19:30)
[2022-04-18] MEDS: Vitamins B Comp w/C TAB 1 TAB PO (08:23)
[2022-04-18] MEDS: Docusate Sodium 100 MG CAP PO (08:23)
[2022-04-18] MEDS: Multivitamin w/Minerals TAB 1 TAB PO (08:23)
[2022-04-18] MEDS: Atorvastatin 20 MG TAB PO (08:24)
--- NOTE | 2022-04-18 08:45 | RT.EKG_ITS ---
APPROVED REPORT Exam: Resting ECG Reason for Exam: Unresponsive Patient Location: I HR:79 bpm ECG Measurements Heart Rate 79 AXIS SC 176 P 10 QRSd 91 QRS -11 QT 378 T 30 QTc 434 Conclusion Sinus rhythm...normal P axis, V-rate 50- 99 Normal Electrocardiogram
--- NOTE | 2022-04-18 08:54 | PGE_ITS ---
Date of Service Date of service: 04/18/22 Time of Service: 08:54 Assessment and Plan Assessment and plan (1) Unresponsive episode: Status: Acute Assessment and plan: Suspect syncope in setting of hypotension; however, need to also consider seizure or a post-ictal state, or a CVA.C Consider also a side effect of keppra. Will follow up CT head. Hydrate IV. Monitor BPs and mental status closely in ICU. Obtain echo. Was in NSR during the episode on tele. [employer]. (2) Seizure: Status: Chronic Assessment and plan: Continue increased dose of keppra, per [facility] recommendations. Planned for an EEG and neurology consult on Tuesday. Previously hospitalized at [facility] for continuous EEG. The patient has no evidence of UTI - it was ruled out with a negative UA in the ED. Consider increased combativeness as a side effect of keppra as well. (3) Parkinson's disease: Status: Chronic Assessment and plan: Continue sinemet. Consider increase dose. Neurology consulted - in house tomorrow. PT consulted. 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 However, I cannot rule out post-ictal state or side effect of keppra. Defer to neurology. (5) Dementia with behavioral disturbance: Status: Suspected Assessment and plan: As above. Continue prn ativan - effective. (6) DVT prophylaxis: Status: Acute Assessment and plan: SC heparin (7) Discharge planning issues: Status: Acute Assessment and plan: Full code at this time Move to the ICU. Total Critical Care Time 60 minutes. Subjective Subjective Interval history since last seen: Called by nursing re a rapid response going on in the patient's room (not called overhead). Arrived at bedside - patient's was in the room, stating he was eating breakfast while in the recliner this morning when, suddenly he had become unresponsive. Per , he did not respond to verbal stimuli or sternal rub. He did respond to sternal rub to me and opened his eyes, but again, became lethargic moments after. SBP in the 90s while in the recliner. BG 140. No obvious focal deficits, but I am unable to do a full neurologic evaluation due to the patient's mental status. LR 1L bolus ordered. Stat EKG and CT of the head ordered. Labs (troponins ordered). ICU transfer ordered. Exam Narrative Exam Narrative: General: Elderly male in a recliner, lethargic, responds to sternal rub by opening eyes, but does not follow commands; no obvious focal deficits; promptly falls back asleep. HEENT: Eyes closed; when opens them able to focus in midline but first looks to the right. Heart: RRR, no m/r/g Lungs: Diminshed breath sounds anteriorly Abdomen: soft, nontender, nondistended Extremities: no edema, clubbing, or cyanosis of BLEs. Objective Last Vital Signs Temp 36.7 C 04/18/22 05:04 Pulse 74 04/18/22 07:25 Resp 18 04/18/22 05:04 BP 134/78 04/18/22 05:04 Pulse Ox 96 04/18/22 05:04 Laboratory Results - last 24 hr 04/17/22 04/18/22 04/18/22 06:50 06:12 06:12 WBC 8.08 RBC 4.40 Hgb 13.6 Hct 39.9 L MCV 91 MCH 30.9 MCHC 34.1 D RDW 12.1 Plt Count 304 MPV 8.8 Immature Gran % 0.5 Neutrophils % 62.3 Lymphocytes % 21.7 Monocytes % 11.8 Eosinophils % 2.7 Basophils % 1.0 Nucleated RBC % 0.0 Absolute Neutrophils 5.04 Absolute Lymphocytes 1.75 Absolute Monocytes 0.95 H Absolute Eosinophils 0.22 Absolute Basophils 0.08 Sodium 140 Potassium 3.9 Chloride 104 Carbon Dioxide 29.2 Anion Gap 6.8 BUN 14 Creatinine 0.9 Estimated GFR/1.73 m2 >= 60.00 Glucose 94 Calcium 8.9 Magnesium 2.2 Creatine Kinase 59
[2022-04-18] MEDS: Lactated Ringers 1,000 ML 1000 ML IV (09:00)
--- NOTE | 2022-04-18 09:16 | DI.CT_ITS ---
Exam(s) CT HEAD WO EXAM: CT HEAD WO CLINICAL HISTORY: unresponsive episode. TECHNIQUE: Imaging Protocol: Axial computed tomography images with coronal and sagittal reformatted images were created and reviewed COMPARISON: CT CT HEAD WO from 04/16/2022 FINDINGS: There are no skull fractures nor fluid in the visualized paranasal sinuses. There is no evidence of intracranial hemorrhage, mass effect, or shift of midline structures. There are no extra-axial fluid collections. The ventricles are not enlarged or shifted and there is no blo od within the ventricular system nor within the basal cisterns. Periventricular white matter changes are unchanged from the prior study, consistent with chronic smal l-vessel white matter disease. IMPRESSION: No acute intracranial findings on this noninfused CT scan of the brain. No significant change compared to prior study of 04/16/2022. If clinically indicated follow-up MRI c an be performed for added sensitivity and specificity. RADIATION DOSE DELIVERED: 849.57mGy.cm Total DLP DATA REPOSITORY: All CT scans at this facility are submitted to the National Radiology Data Registry (NRDR) Dose Index Registry (DIR) with the [employer] (A[employer]). RADIATION OPTIMIZATION: All CT scans at this facility use at least one of these dose optimization te chniques: automated exposure control; mA and/or kV adjustment per patient size (includes targeted exa ms where dose is matched to clinical indication); or iterative reconstruction.
[2022-04-18 09:40] LABS: Troponin I < 50 ng/L (<or=60)
--- NOTE | 2022-04-18 09:42 | DI.VRAD_ITS ---
PROCEDURE INFORMATION: Exam: CT Head Without Contrast Exam date and time: 04/18/2022 9:12 AM Age: 71 years old Clinical indication: Other: Unresponsive episode TECHNIQUE: Imaging protocol: Computed tomography of the head without contrast. COMPARISON: CT HEAD WO 04/16/2022 4:43 PM FINDINGS: Brain: No acute intracranial hemorrhage, midline shift or mass effect. Similar age-related atrophy. Similar periventricular and subcortical white matter hypodensities, nonspecific and likely related to chronic microvascular ischemic changes. Cerebral ventricles: Similar ventricular enlargement secondary to age-related atrophy. Paranasal sinuses: Partially opacified left ethmoid air cell and minimal mucosal thickening of right maxillary sinus, similar to prior. Mastoid air cells: Visualized mastoid air cells are well aerated. Bones/joints: No acute abnormality. Soft tissues: No acute abnormality. Vasculature: Intracranial arterial calcifications again noted. IMPRESSION: No acute intracranial abnormality. No significant interval change since 04/16/2022 study. Dictated and Authenticated by: Silvana Leon MD. Ordering:BOB Osorio MD
[2022-04-18 12:47] LABS: Troponin I < 50 ng/L (<or=60)
[2022-04-18] MEDS: QUEtiapine 25 MG TAB PO (18:19)
[2022-04-18] MEDS: Melatonin 3 MG TAB 6 MG PO (19:31)
[2022-04-18] MEDS: Gabapentin 100 MG CAP PO (23:37)
[2022-04-18] MEDS: Baclofen 10 MG TAB PO (23:37)
[2022-04-19] VITALS (96 sets, daily range): BP systolic 92–135; BP diastolic 45–84; PULSE 64–99; RESP 10–21; TEMP 36.8–36.9; O2SAT 91–98
[2022-04-19] MEDS: Heparin 5,000 UNITS/ML VIAL 5000 UNITS SC ×2 (06:07→21:03)
[2022-04-19] MEDS: LORazepam 0.5 MG TAB PO ×3 (07:23→22:17)
[2022-04-19] MEDS: Vitamins B Comp w/C TAB 1 TAB PO (07:23)
[2022-04-19] MEDS: Baclofen 10 MG TAB PO (07:23)
[2022-04-19] MEDS: Docusate Sodium 100 MG CAP PO (07:23)
[2022-04-19] MEDS: Carbidopa 25/Levodopa 100 TAB PO ×2 (07:23→16:56)
[2022-04-19] MEDS: Acetaminophen 325 MG TAB 650 MG PO (07:26)
[2022-04-19] MEDS: Atorvastatin 20 MG TAB PO (07:26)
[2022-04-19] MEDS: Multivitamin w/Minerals TAB 1 TAB PO (07:27)
[2022-04-19] MEDS: levETIRAcetam 500 MG TAB 1500 MG PO ×2 (07:27→21:03)
[2022-04-19 07:52] LABS: Lactate 1.3 mmol/L (0.6-1.4)
[2022-04-19 07:54] LABS: Abs Immature Grans 0.02 10^3/uL (0.0-0.06); Absolute Basophil Count 0.09 10^3/uL (0.0-0.2); Absolute Eosinophil Count 0.16 10^3/uL (0.0-0.7); Absolute Lymphocyte Count 1.24 10^3/uL (1.2-3.4); Absolute Monocyte Count 0.81 10^3/uL (0.1-0.8); Absolute Neutrophil Count 5.69 10^3/uL (1.2-6.7); Basophils % 1.1; HCT 42.6 % (40.0-50.0); HGB 14.7 g/dL (13.5-17.5); Immature Grans % 0.2; Lymphocytes % 15.5; MCH 31.1 pg (27.0-33.0); MCHC 34.5 % (32.0-36.0); MCV 90 fL (80-95); MPV 8.6 fL (8.0-11.0); Monocytes % 10.1; Neutrophils % 71.1; Platelet Count 306 10^3/uL (130-400); RBC 4.72 10^6/uL (4.36-5.78); RDW-SD 39.4 fL; WBC 8.01 10^3/uL (4.4-10.8)
[2022-04-19 08:09] LABS: Anion Gap 7.6 mmol/L (3-11); BUN 13 mg/dL (7-18); C-Reactive Protein 0.66 mg/dL (0.0-0.3); CO2 26.4 mmol/L (21.0-32.0); CREATININE 0.8 mg/dL (0.70-1.30); Calcium 8.8 mg/dL (8.5-10.1); Chloride 105 mmol/L (98-107); Glucose 102 mg/dL (74-106); Magnesium 2.2 mg/dL (1.8-2.4); Sodium 139 mmol/L (136-145)
[2022-04-19 08:35] LABS: Procalcitonin < 0.1 ng/mL
[2022-04-19] MEDS: Lactated Ringers 1,000 ML 1000 ML IV (09:00)
--- NOTE | 2022-04-19 09:48 | W.PM.PROGNOT ---
Date of Service Date of service: 04/19/22 Time of Service: 09:49 Assessment and Plan Assessment and plan (1) Unresponsive episode: Status: Acute Assessment and plan: Suspect syncope in setting of hypotension; however, need to also consider seizure or a post-ictal state, or a CVA. Consider also a side effect of keppra. CT head negative. BPs normally low, per , however I am wondering if he drinking enough water. Bolusing 1L of LR today. Monitor BPs and mental status closely in ICU. Await echo. Was in NSR during the episode on tele. [employer]. (2) Seizure: Status: Chronic Assessment and plan: Continue increased dose of keppra, per [facility] recommendations. Planned for an EEG and neurology consult today. Previously hospitalized at [facility] for continuous EEG. The patient has no evidence of UTI - it was ruled out with a negative UA in the ED. Consider increased combativeness as a side effect of keppra as well. (3) Parkinson's disease: Status: Chronic Assessment and plan: Continue sinemet. Consider increase dose. Neurology consulted. PT reconsulted. 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 However, I cannot rule out post-ictal state or side effect of keppra. Defer to neurology. (5) Dementia with behavioral disturbance: Status: Suspected Assessment and plan: As above. Continue prn ativan, however we are finding that seroquel is also effective. (6) DVT prophylaxis: Status: Acute Assessment and plan: SC heparin (7) Discharge planning issues: Status: Acute Assessment and plan: Full code at this time Keep in ICU for now. Discussed with DR Love. There is a possibility of needing transfer to a tertiary care facility if it is deemed that he requires 24 hr EEG monitoring. Subjective Subjective Interval history since last seen: Claudio is doing much better today, per his . He became agitated yesterday evening and did require a dose of seroquel 25 mg x1, which helped. Today, he denies dizziness, chest pain, shortness of breath, nausea, abdominal discomfort. Exam Narrative Exam Narrative: General: somnolent male who wakes up easily, A&Ox1-2(thinks he is at [facility] knows it's 2021), hypotonia, slightly garbled speech, resting tremor HEENT: EOMI (he looks preferentially to the R, but is able to look to the L); MMM Heart: RRR, no m/r/g Lungs: CTAB Abdomen: soft, nontender, nondistended Extremities: no edema BLEs. Objective Last Vital Signs Temp 36.8 C 04/19/22 04:29 Pulse 67 04/19/22 04:01 Resp 12 04/19/22 04:20 BP 93/66 L 04/19/22 04:01 Pulse Ox 93 04/19/22 04:20 Laboratory Results - last 24 hr 04/18/22 04/19/22 04/19/22 12:15 07:40 07:40 WBC RBC Hgb Hct MCV MCH MCHC RDW Plt Count MPV Immature Gran % Neutrophils % Lymphocytes % Monocytes % Eosinophils % Basophils % Nucleated RBC % Absolute Neutrophils Absolute Lymphocytes Absolute Monocytes Absolute Eosinophils Absolute Basophils VBG Lactate 1.3 Sodium 139 Potassium 4.0 Chloride 105 Carbon Dioxide 26.4 Anion Gap 7.6 BUN 13 Creatinine 0.8 Estimated GFR/1.73 m2 >= 60.00 Glucose 102 Calcium 8.8 Magnesium 2.2 Troponin I < 50 C-Reactive Protein 0.66 H Procalcitonin 04/19/22 04/19/22 07:40 07:40 WBC 8.01 RBC 4.72 Hgb 14.7 Hct 42.6 MCV 90 MCH 31.1 MCHC 34.5 RDW 12.0 Plt Count 306 MPV 8.6 Immature Gran % 0.2 Neutrophils % 71.1 Lymphocytes % 15.5 Monocytes % 10.1 Eosinophils % 2.0 Basophils % 1.1 Nucleated RBC % 0.0 Absolute Neutrophils 5.69 Absolute Lymphocytes 1.24 Absolute Monocytes 0.81 H Absolute Eosinophils 0.16 Absolute Basophils 0.09 VBG Lactate Sodium Potassium Chloride Carbon Dioxide Anion Gap BUN Creatinine Estimated GFR/1.73 m2 Glucose Calcium Magnesium Troponin I C-Reactive Protein Procalcitonin < 0.1 Multi-Disciplinary Checklist Lines/Tubes CENTRAL LINE: no ARTERIAL LINE: no OSUNA: no ENDOTRACHEAL TUBE: no ICU Maintenance GLUCOSE 140-180mg/dL: yes NUTRITION AT GOAL: yes PRESSURE ULCER: no RESTRAINTS: no ANTIBIOTICS(if yes, consider Stewardship): No Social Issues FAMILY UPDATED: yes PT/OT: yes GOALS/DISPOSITION/TRUCK AND TRANSPORT MECHANIC: yes CODE STATUS: Full Prophylaxis DVT PROPHYLAXIS: yes GI PROPHYLAXIS: no
--- NOTE | 2022-04-19 10:33 | PT.INDS ---
PT Notes Visit Reasons: Uncontrolled Seizure Disorder Treatment Date: 04/17/22 (1 visit only) Referring Doctor: Mic Price PT Orders: PT CONSULT: exacerbation of chronic condition Precautions: fall, seizure, standard This document serves as a summary of care. No PT services were proved on this date. Patient Profile/Admitting Diagnosis: Patient admitted from the [facility] for medical management following seizure. Patient has advanced Parkinson's disease, managed on Sinemet. He was seen for a single PT session, although was transferred to the ICU on 04/18/22. PT discontinued due to decline in medical status. PMHX: PD seizures Social History/Home Situation: Resident of the [facility]. is supportive and present for portion of evaluation. Equipment Owned/DME: resident of [facility]. reports that he utilizes FWW or cane at baseline. Subjective: none obtained Objective: ROM: Right Upper Extremity: WFL Left Upper Extremity: WFL Right Lower Extremity: WFL Left Lower Extremity: WFL Strength: Right Upper Extremity: Grossly 3/5 for all motions. Unable to follow commands for MMT Left Upper Extremity: Grossly 3/5 for all motions. Unable to follow commands for MMT Right Lower Extremity: Able to functionally demonstrate SLR, heel slide and ankle pump Left Lower Extremity: Able to functionally demonstrate SLR, heel slide and ankle pump Bed Mobility/Transfers: sit-stand: initially demonstrates slow transfer, with need for min A and cues for hand placement. With simple cues for large amplitude movement, he demonstrates improved safety and speed, with need for CGA only. stand-sit: CGA, with cues for amplitude as noted above Gait: Patient ambulates 6' with FWW and mod A x 1. Initially requires only CGA and cues for amplitude, although becomes distracted by clothing and shows diminished quality of gait as a result. With simple commands, he's able to complete ambulation safely with mod A. Balance: Static Sitting: good Dynamic Sitting: good Static Standing: fair Dynamic Standing: fair Special Tests: Mobility Limitations Standardized Measure [facility] AM-PAC 6 clicks Basic Mobility Inpatient Short Form: Raw Score: 16 CMS Score: 54% imairment Assessment: Patient is a 71 year old male referred to physical therapy services with the diagnosis of exacerbation of chronic condition. Patient presented with clinical signs and symptoms consistent with acute on chronic mobility issues, with underlying PD and seizure disorder. He was seen for a single PT session (evaluation only), then transferred to the ICU. Appropriate for discharge from PT, although we will be happy to re-evaluate once medically stable. Goals: Goals X1 week 1. Supine-Sit : supervision (not met) 2. Sit-Supine : supervision(not met) 3. Sit-Stand : supervision with FWW(not met) 4. Stand-Sit : supervision with FWW(not met) 5. Bed-Chair : CGA with FWW(not met) 6. Chair-Bed : CGA with FWW(not met) 7. Gait : CGA with FWW x 20'(not met) Plan of Care/Treatment Plan: D/C from PT services due to change in medical status. DISCHARGE RECOMMENDATIONS: Assisted Care : return to the [facility] once medically stable TREATMENT CODE/TIME: none Dorita Flores, PT, DPT [facility]
[2022-04-19 14:24] LABS: Bilirubin Negative (Negative); Blood Negative (Negative); Clarity Clear (Clear); Glucose Negative (Negative); Ketones Trace mg/dL (Negative); Leukocyte Esterase Negative (Negative); Nitrite Negative (Negative); pH 6.5 (5-8)
--- NOTE | 2022-04-19 16:03 | PDOC.CMPRO ---
- If Service Date Differs Date of service: 04/19/22 Time of Service: 16:03 Care Management Progress Note S/O: Claudio continues to be closely monitored and treated. PT on hold due to acuity. CM continues to follow. A: 71 year old male admitted to [facility] 04/17/22 for uncontrolled seizure disorder P: Claudio will be discharged back to the [facility] when medically cleared by provider. He will follow up with neurology and his discharge plan of care as instructed. He will be transported via EMS when ready. CM will continue to follow.
--- NOTE | 2022-04-19 17:14 | NCONE_ITS ---
Date of service: 04/19/22 Time of Service: 17:14 Assessment and Plan Assessment and plan (1) Unresponsive episode: Status: Acute (2) Seizure: Status: Chronic (3) Altered mental status: Status: Acute (4) Parkinson's disease: Status: Chronic Assessment and plan: #1. Altered mental status/decline in function over 1-2 months. Unclear etiology. Could be multifactorial. Certainly concerning for status epilepticus given ongoing description of seizure events as well as seeming clearing of mentation following administration of fosphenytoin. Other encephalopathy including autoimmune or infections also in differential, though latter less likely given lack of infectious symptoms (fever, etc). A dementing process is also part of the differential. He is getting started on overnight EEG now. Will continue LEV 1500mg BID for now. Pending EEG, we may make an adjustment in his medications. See epilepsy below. If need for further EEG monitoring, he will need to be transferred. Pending EEG, he will likely need LP testing for CSF cell count, protein, glu cose, culture, paraneoplastic panel, WNV, herpes panel. Would also check serum paraneoplastic panel, RPR, heavy metal screen, tick panel (latter is pending). Agree with use of Seroquel prn for delirum/agitation. I would continue to hold baclofen. I would schedule melatonin to 6mg HS to reduce REM sleep behavior disorder so as not to further interfere with mental status. . #2. Epilepsy. Continue LEV 1500mg BID. Will monitor on EEG overnight. #3. Parkinsons. Please increase Sinemet to TWO tabs 25/100mg TID as per his home regimen at 8am-1pm-8pm. Ok to hold rasagiline while here. Schedule melatonin 6mg HS as above. History of Present Illness History of Present Illness Chief Complaint: AMS/seizures Narrative: Handedness: right. HPI: Mr. Upton is a 71 year-old man with Parkinsons disease, REM sleep behavior disorder, ETOH abuse, hyperlipidemia, chronic low back pain, and CAD. = Fernanda. His primary neurologist is Dr. Ingram at [facility]. Mr. Upton was admitted to [facility] 03/24/22-04/01/22 after presenting to [facility] ER on 03/23/22 after awoke that morning to note gibberish/non-sensical speech and ?clumsiness of his left hand. In the ER, he was witnessed to have a GTC. He was treated with 2mg lorazepam and 1gm LEV (levetiracetam). The next day he was noted to have episodic tonic shaking of his RLE associated with eye deviation to the right. He was given another 1mg lorazeam and 2gm of LEV. He was transferred to [facility]. He underwent work-up as below. The notes indicated recent increased back pain for which he was started on gabapentin (increased to 200mg BID just prior to admission) and baclofen which was Rx'd 10mg BID prn. Both of those medications were held at [facility]. Upon arrival at [facility], LEV was increased to 1500mg BID. During the hospitalization his mentation improved and it does not appear per notes that he had any further seizure activity. In hindsight, believes that she may have witnessed some staring episodes beginning in February. He also had increased REM sleep behavior disorders during that same time. Prior to February 2022, denies any cognitive concerns. However, he stopped driving due to vision issues, and his home life is quite sedentary - he spends most of his time watching TV. He stopped drawing which was his main hobby - due dexterity issues from PD and vision issues. His only chores involve care for himself - bathing, dressing. has to help him cut his meat, but he otherwise feeds himself. At baseline, he walked unassisted. He has no history of prior seizures and no family history of epilepsy. Work-up at [facility]: -W 8.18, Cr 1.36, Na 138, CRP 4.18 -CTH ([facility] 03/23/22): no acute findings per report. -MRI Brain w/o ([facility] 03/23/22): no acute findings per report. -vEEG ([facility] 03/24/22-03/25/22 x 17 hrs): moderate generalized slowing with more focal slowing in the left hemisphere. No epileptiform activity. No seizures seen. -I could not find an official EEG report for further monitoring, but per a progress note, he was recorded additionally through 03/26/22 - another 20+ hours with same findings. -MRI brain w/wo (03/26/22 at [facility]): No acute findings. generalized atrophy. The L hippocampus looks odd to me, but was read as normal by radiology there. I reviewed these images personally and this is my personal interpretation. Following [facility] admission, he was discharged to [facility] for rehabilitation. I am not quite clear on timeline of events, but it sounds like at some point, began to notice return of seizure-like events. She describes classic figure-4 posturing with one knee bent and one arm behind head with other straight down - alternately with both arms extended... lasting <1min with unresponsiveness. He was apparently diagnosed with a UTI and notes that his seizures resolved once he was started on antibiotics.... I see a UA/culture done on 04/02/22 that grew klebsiella. Following, notes decline in mentation with return of seizure like events, particularly in last 3 days prior to presenting to the ER on 04/16/22. In the ER, he was witnessed to have figure-4 seizure-like activity. He was given 1g PHE (fosphenytoin), with an additional 1500mg LEV. The ER MD noted improvement in mental status following administration of fosphenytoin such that he was able to follow commands. Of note, his paperwork indicates that he was on LEV 750mg BID at his [facility]. It is unclear how much baclofen he was getting. Gabapentin was dosed at 100mg HS. He has melatonin 6mg HS prn on his list as w bryson. Since admission, he has had good and bad days. On 04/17/22 around noon, he became agitated. He was able to be re-directed/calmed. He rested the rest of that afternoon. On 04/18/22 at breakfast, he suddenly became unresponsive - no posturing, described him as floppy. SBP 90s, FSBS 140. He was briefly responsive to sternal rub. Then back to being urnesponsive. Mentation did improve per reports, though hre remained confused. Yesterday evening around 5-6pm, he became agitated for which he was treated with Seroquel 25mg with improvement. reports today is a good day, but he is no where close to his baseline. Current Work-up: -CTH (04/16/22): No acute findings. Moderate generalized atrophy and chronic small vessel disease changes. I reviewed these images personally and this is my personal interpretation. -CTH (04/18/22): No acute findings and no change from above. I reviewed these images personally and this is my personal interpretation. -W 7.81, Na 140, Cr 0.8, CK 59, trop x3 neg, TSH 1.18, UA neg, B12 308 Review of Systems Unobtainable due to mental status PFSH All Active Problems (Updated 04/19/22 @ 21:01 by Anastacia Carlos MD) Altered mental status (Acute) Unresponsive episode (Acute) Discharge planning issues (Acute) DVT prophylaxis (Acute) Cognitive impairment (Acute) Parkinson's disease (Chronic) Seizure (Chronic) Medical History (Updated 04/19/22 @ 21:01 by Anastacia Carlos MD) Alcohol abuse CAD (coronary artery disease) Chronic low back pain Hyperlipidemia Surgical History (Updated 04/19/22 @ 21:01 by Anastcaia Carlos MD) S/P cataract extraction Social History Smoking/Tobacco Use Status: Unknown Smoking risk assessment performed?: Yes Additional Social history: patient unable to answer questions. Visit Medication and Allergies Active Medications Generic Name Dose Route Start Last Admin Trade Name Freq PRN Reason Stop Dose Admin Acetaminophen 650 mg 04/16/22 19:05 04/19/22 07:26 Acetaminophen 325 Mg Tab PO 650 mg Q4H PRN PRN Administration Atorvastatin Calcium 20 mg 04/17/22 08:30 04/19/22 07:26 Atorvastatin 20 Mg Tab PO 20 mg DAILY EMILEE Administration Baclofen 10 mg 04/16/22 19:09 04/19/22 07:23 Baclofen 10 Mg Tab PO 10 mg BID PRN PRN Administration Carbidopa/Levodopa 1 tab 04/16/22 20:00 04/19/22 17:05 Carbidopa 25/Levodopa 100 Tab PO Not Given TID EMILEE Cyanocobalamin 1,000 mcg 04/19/22 17:30 Cyanocobalamin 1000 Mcg/Ml Vial IM/SC 04/19/22 23:59 TODAY@1730 EMILEE Cyanocobalamin 1,000 mcg 04/20/22 08:30 Cyanocobalamin 500 Mcg Tab PO DAILY EMILEE Dimethicone/Zinc Oxide 0 gm 04/16/22 19:05 Luca Protect Cream 142 Gm Tube TP PRN PRN Docusate Sodium 100 mg 04/16/22 19:05 Docusate Sodium 100 Mg Cap PO TID PRN PRN Docusate Sodium 100 mg 04/17/22 08:30 04/19/22 07:23 Docusate Sodium 100 Mg Cap PO 100 mg DAILY EMILEE Administration Gabapentin 100 mg 04/16/22 22:00 04/18/22 23:37 Gabapentin 100 Mg Cap PO 100 mg HS EMILEE Administration Heparin Sodium (Porcine) 5,000 units 04/16/22 19:15 04/19/22 14:21 Heparin 5,000 Units/Ml Vial SC Not Given Q8H EMILEE Sodium Chloride 500 mls @ 0 mls/hr 04/16/22 19:05 Saline 500ml Bag IV PRN PRN As Directed IV Miscellaneous Supplies 1 each 04/16/22 19:15 Iv Access IV DIRECTED EMILEE Iron/Minerals/Multivitamins 1 tab 04/17/22 08:30 04/19/22 07:27 Multivitamin W/Minerals Tab PO 1 tab DAILY EMILEE Administration Levetiracetam 1,500 mg 04/17/22 08:30 04/19/22 07:27 Levetiracetam 500 Mg Tab PO 1,500 mg BID EMILEE Administration Lorazepam 0.5 mg 04/16/22 22:49 04/19/22 16:56 Lorazepam 0.5 Mg Tab PO 0.5 mg Q4H PRN PRN Administration Magnesium Hydroxide 30 ml 04/16/22 19:05 Milk Of Magnesia 30 Ml Cup PO DAILY PRN PRN Melatonin 6 mg 04/19/22 22:00 Melatonin 3 Mg Tab PO HS EMILEE Nitroglycerin 0.4 mg 04/16/22 19:09 Nitroglycerin 0.4 Mg Tab SL PRN PRN Polyethylene Glycol 17 gm 04/16/22 19:05 Polyethylene Glycol 3350 17 Gm Packet PO DAILY PRN PRN Constipation Quetiapine Fumarate 25 mg 04/19/22 17:09 Quetiapine 25 Mg Tab PO DAILY PRN PRN Sodium Chloride 0 ml 04/16/22 19:05 Normal Saline Flush 10 Ml Syr IVP PRN PRN Vitamin B Complex/Vitamin C 1 tab 04/17/22 08:30 04/19/22 07:23 Vitamins B Comp W/C Tab PO 1 tab DAILY EMILEE Administration Allergies No Known Allergies Allergy (Unverified 04/16/22 20:47) Exam Narrative Exam Narrative: Physical Exam: Gen: Patient of apparent stated age, mild distress, confused Head and face: no facial or cranial abnormalities Neck: Supple, no meningismus, no occipital tenderness CV: RRR, no murmur Resp: CTA B/L Abd: soft, nontender, nondistended Ext: No edema. No clubbing or cyanosis. No bony deformity. Neuro Exam: Language: fluency, naming, repetition all impaired; able to follow only simple commands; cannot follow 2 step commands or commands across the midline Mental Status: awake; not quite alert; oriented to self but told me he was 29 years old and said his birthday was on [birth year]; when I asked the month he said [birth year]; he was eventually able to identify his at bedside; he was absent mindedly play ing with his penis at one time; easily re-directed Speech: no dysarthria Cranial nerves: Funduscopy: not performed CN II: visual eugene appear intact to threat CN III, IV, : extraocular movements intact horizontally - I could not get him to track vertically, no nystagmus, pupils symmetric and reactive to light CN V: difficult to test due to mental status CN VII: R lower face weakness CN VIII: hearing reduced CN IX, X: unable to test due to mental condition CN XI: unable to test due to mental condition CN XII:unable to test due to mental condition Sensory: withdrawals to noxious stimuli in all extremities; unable to test other modalities Motor: bulk and tone intact. No cogwheel rigidity. Moves all extremities equall y. Appears to have full strength in UE. He had a harder time complying with testing in lower extremities. Reflexes: hyporeflexic throughout; toes down going bilaterally; Coordination: not ataxia Gait: not able to test safely at this time Results Last Vital Signs Temp 98.4 F 04/19/22 16:21 Pulse 80 04/19/22 16:21 Resp 15 04/19/22 16:21 BP 114/81 04/19/22 16:02 Pulse Ox 97 04/19/22 16:21 Labs Result diagrams: 04/19/22 07:40 04/19/22 07:40 Labs: Laboratory Results - last 24 hr 04/19/22 04/19/22 04/19/22 07:40 07:40 07:40 WBC 8.01 RBC 4.72 Hgb 14.7 Hct 42.6 MCV 90 MCH 31.1 MCHC 34.5 RDW 12.0 Plt Count 306 MPV 8.6 Immature Gran % 0.2 Neutrophils % 71.1 Lymphocytes % 15.5 Monocytes % 10.1 Eosinophils % 2.0 Basophils % 1.1 Nucleated RBC % 0.0 Absolute Neutrophils 5.69 Absolute Lymphocytes 1.24 Absolute Monocytes 0.81 H Absolute Eosinophils 0.16 Absolute Basophils 0.09 VBG Lactate 1.3 Sodium 139 Potassium 4.0 Chloride 105 Carbon Dioxide 26.4 Anion Gap 7.6 BUN 13 Creatinine 0.8 Estimated GFR/1.73 m2 >= 60.00 Glucose 102 Calcium 8.8 Magnesium 2.2 C-Reactive Protein 0.66 H Procalcitonin Urine Color Urine Clarity Urine pH Ur Specific [place]ward Urine Protein Urine Ketones Urine Blood Urine Nitrite Urine Bilirubin Urine Urobilinogen Ur Leukocyte Esterase Urine Glucose 04/19/22 04/19/22 07:40 14:00 WBC RBC Hgb Hct MCV MCH MCHC RDW Plt Count MPV Immature Gran % Neutrophils % Lymphocytes % Monocytes % Eosinophils % Basophils % Nucleated RBC % Absolute Neutrophils Absolute Lymphocytes Absolute Monocytes Absolute Eosinophils Absolute Basophils VBG Lactate Sodium Potassium Chloride Carbon Dioxide Anion Gap BUN Creatinine Estimated GFR/1.73 m2 Glucose Calcium Magnesium C-Reactive Protein Procalcitonin < 0.1 Urine Color Yellow Urine Clarity Clear Urine pH 6.5 Ur Specific [place]ward 1.020 Urine Protein Negative Urine Ketones Trace H Urine Blood Negative Urine Nitrite Negative Urine Bilirubin Negative Urine Urobilinogen 2.0 H Ur Leukocyte Esterase Negative Urine Glucose Negative
[2022-04-19] MEDS: QUEtiapine 25 MG TAB PO (18:06)
[2022-04-19] MEDS: Cyanocobalamin 1000 MCG/ML VIAL IM/SC (21:03)
[2022-04-19] MEDS: Melatonin 3 MG TAB 6 MG PO (21:23)
[2022-04-19] MEDS: Gabapentin 100 MG CAP PO (21:24)
[2022-04-20] VITALS (23 sets, daily range): BP systolic 98–152; BP diastolic 67–94; PULSE 66–81; RESP 10–18; TEMP 35.6–37; O2SAT 96–98
[2022-04-20] MEDS: LORazepam 2 MG/ML VIAL 1 MG IVP (00:37)
[2022-04-20] MEDS: Normal Saline Flush 10 ML SYR IVP ×2 (00:37→19:50)
[2022-04-20] MEDS: Heparin 5,000 UNITS/ML VIAL 5000 UNITS SC ×3 (05:19→23:31)
[2022-04-20] MEDS: LORazepam 0.5 MG TAB PO (05:19)
[2022-04-20 06:34] LABS: Abs Immature Grans 0.03 10^3/uL (0.0-0.06); Absolute Basophil Count 0.05 10^3/uL (0.0-0.2); Absolute Eosinophil Count 0.18 10^3/uL (0.0-0.7); Absolute Lymphocyte Count 1.67 10^3/uL (1.2-3.4); Absolute Monocyte Count 0.87 10^3/uL (0.1-0.8); Absolute Neutrophil Count 4.51 10^3/uL (1.2-6.7); Basophils % 0.7; Eosinophils % 2.5; HCT 42.9 % (40.0-50.0); HGB 14.4 g/dL (13.5-17.5); Immature Grans % 0.4; Lymphocytes % 22.8; MCH 30.6 pg (27.0-33.0); MCHC 33.6 % (32.0-36.0); MCV 91 fL (80-95); MPV 9.3 fL (8.0-11.0); Monocytes % 11.9; Neutrophils % 61.7; Platelet Count 273 10^3/uL (130-400); RBC 4.71 10^6/uL (4.36-5.78); RDW 11.9 % (11.8-14.1); RDW-SD 39.8 fL; WBC 7.31 10^3/uL (4.4-10.8)
[2022-04-20 06:47] LABS: Anion Gap 8.4 mmol/L (3-11); BUN 13 mg/dL (7-18); CO2 27.6 mmol/L (21.0-32.0); CREATININE 0.8 mg/dL (0.70-1.30); Chloride 105 mmol/L (98-107); Glucose 95 mg/dL (74-106); Magnesium 2.3 mg/dL (1.8-2.4); Potassium 3.8 mmol/L (3.5-5.1); Sodium 141 mmol/L (136-145)
--- NOTE | 2022-04-20 08:00 | DI.US_ITS ---
APPROVED REPORT EXAM: Comprehensive 2D, Doppler, and color-flow Echocardiogram Patient Location: In-Patient Room/Bed: [id number] Yacht Hand: Zenia Ventura RDCS (AE) Indications: ?Syncope Other Information Study Quality: Adequate. Technically limited study due to body habitus, inability to position patient exam done supine, uncooperative patient. Conclusion Technically limited study The left ventricle appears normal in size wall thickness and systolic function. EF is 60%. No wall motion abnormalities were appreciated The right atrium and right ventricle were not well visualized The left atrium is normal in size The aortic valve was mildly sclerotic and trileaflet without stenosis or regurgitation Within the limits of the study no additional valvular abnormalities were noted Estimated right ventricular systolic pressure was 25 mmHg Wall motion Left Ventricle The left ventricle is normal size. The left ventricular systolic function is normal. The left ventric ular ejection fraction is within the normal range. There is normal left ventricular wall thickness. T here is normal LV segmental wall motion. LVEF is 59%. Right Ventricle Right ventricle is not well visualized. Right ventricular systolic function could not be assessed. Atria The left atrium size is normal. Right atrium is not well visualized. Aortic Valve Aortic valve is mildly sclerotic and trileaflet There is no aortic valvular stenosis. No aortic regur gitation is present. Mitral Valve The mitral valve is normal in structure. No evidence of mitral valve stenosis. Trace mitral regurgita tion. Tricuspid Valve The tricuspid valve is normal in structure. There is no tricuspid valve stenosis. Trace tricuspid reg urgitation. Pulmonic Valve Pulmonic valve is not well visualized. There is no pulmonic valvular stenosis. There is no pulmonic v alvular regurgitation. Great Vessels The aortic root is normal in size. The ascending aorta is normal in size. Pericardium No subcostal views. Patient pushed my hands away. 2D Dimensions IVSD d PLAX 0.98 cm M: 0.6-1.2 LV Vol A2C d MOD 76.4 mL LVPW d PLAX 0.98 cm M: 0.6 - 1.2 LV Vol A4C d MOD 87.7 mL LVID d PLAX 4.42 cm M: 4.2 - 5.8 LA Area A4C s MOD 8.94 cm2 LVDs 2.95 cm M: 2.5 - 4.0 LV EF A4C MOD 59.7 % Ao Root d 3.10 cm M: 3.1 - 3.7 LV EF A2C MOD 59.2 % Ao Asc Diam d 3.06 cm M: 2.6 - 3.4 LV EF Biplane MOD 57.4 % LV EF Teichholz 60.7 % SV 47.43 mL LVEF (Boyd's) 57.44 % M: 52 - 72 LV Volume 82.57 mL M: 62 - 150 LV Volume Index 41.91 mL/m2 M: 34 - 74 LV Vol Biplane MOD 82.6 mL FS 32.20 % LV Diastology MV E' medial 0.088 (>0.07 m/s) E/A Ratio 0.6 LV E/e MED 5.85 (<14) MV E Vmax 0.52 (0.4-1.3 m/s) MV E' lateral 0.078 (>0.1 m/s) MV A Vmax 0.85 (0.4-1.3 m/s) LV E/e LAT 6.60 (<14) MV E/A Ratio 0.59 MV E/E' medial 5.89 MV E/E' lateral 6.63 Aortic Valve LVOT Area 3.65 cm2 AoV Area Vmax 2.92 cm2 LVOT Vmax 0.81 m/s JESUS Mean Tim. 2.39 cm2 LVOT Mean Tim. 0.49 m/s LVOT Peak Grad 2.6 mmHg LVOT Mean Grad 1.2 mmHg LVOT VTI 0.164 m LVOT Diam s 2.15 cm AoV Vmax 1.01 m/s Velocity Ratio 0.80 AoV Mean Tim. 0.75 m/s AoV Peak Grad 4.1 mmHg LVOT SV 59.96 mL AoV Mean Grad 2.4 mmHg AoV VTI 0.214 m AoV Area VTI 2.80 cm2 Mitral Valve MV DT 255 (160-240 msec) MV PHT 74 msec MV Area PHT 2.97 cm2 MV VTI 0.345 m MV Area VTI 1.74 (4.0-6.0 cm2) Pulmonary Valve PV Vmax 0.59 (0.5-1.5 m/s) RVOT Peak Gr. 0.85 mmHg PV Peak Grad 1.4 mmHg RVOT Mean Gr. 0.50 mmHg PV Mean Grad 1.0 mmHg RVOT VTI 0.104 m PV VTI 0.134 m RVOT Vmax 0.46 m/s Tricuspid Valve TR Peak Grad 20.2 mmHg TR Vmax 2.25 m/s
--- NOTE | 2022-04-20 08:21 | PDOC.EEG_ITS ---
Neurology EEG EEG: [facility] Department of Neurology INPATIENT OVERNIGHT EEG REPORT Date of Recordin04/19/22 at 17:44:51 to 04/20/22 at 07:56:53 Interpreting Physician: Dr. Anastacia Carlos Reason for study: Mr. Upton is a 71 year-old man admitted with altered mental status and concern for intermittent seizure activity. Current Medications: Current Medications Acetaminophen (Acetaminophen 325 Mg Tab) 650 mg PO Q4H PRN PRN Last Admin: 04/19/22 07:26 Dose: 650 mg Atorvastatin Calcium (Atorvastatin 20 Mg Tab) 20 mg PO DAILY [facility] Last Admin: 04/19/22 07:26 Dose: 20 mg Baclofen (Baclofen 10 Mg Tab) 10 mg PO BID PRN PRN Last Admin: 04/19/22 07:23 Dose: 10 mg Carbidopa/Levodopa (Carbidopa 25/Levodopa 100 Tab) 2 tab PO 0800,1300,2000 [facility] Cyanocobalamin (Cyanocobalamin 500 Mcg Tab) 1,000 mcg PO DAILY [facility] Dimethicone/Zinc Oxide (Luca Protect Cream 142 Gm Tube) 0 gm TP PRN PRN Docusate Sodium (Docusate Sodium 100 Mg Cap) 100 mg PO TID PRN PRN Docusate Sodium (Docusate Sodium 100 Mg Cap) 100 mg PO DAILY [facility] Last Admin: 04/19/22 07:23 Dose: 100 mg Gabapentin (Gabapentin 100 Mg Cap) 100 mg PO HS [facility] Last Admin: 04/19/22 21:24 Dose: 100 mg Heparin Sodium (Porcine) (Heparin 5,000 Units/Ml Vial) 5,000 units SC Q8H [facility] Last Admin: 04/20/22 05:19 Dose: 5,000 units Sodium Chloride (Saline 500ml Bag) 500 mls @ 0 mls/hr IV PRN PRN IV Miscellaneous Supplies (Iv Access) 1 each IV DIRECTED [facility] Iron/Minerals/Multivitamins (Multivitamin W/Minerals Tab) 1 tab PO DAILY [facility] Last Admin: 04/19/22 07:27 Dose: 1 tab Levetiracetam (Levetiracetam 500 Mg Tab) 1,500 mg PO BID [facility] Last Admin: 04/19/22 21:03 Dose: 1,500 mg Lorazepam (Lorazepam 0.5 Mg Tab) 0.5 mg PO Q4H PRN PRN Last Admin: 04/20/22 05:19 Dose: 0.5 mg Magnesium Hydroxide (Milk Of Magnesia 30 Ml Cup) 30 ml PO DAILY PRN PRN Melatonin (Melatonin 3 Mg Tab) 6 mg PO HS [facility] Last Admin: 04/19/22 21:23 Dose: 6 mg Nitroglycerin (Nitroglycerin 0.4 Mg Tab) 0.4 mg SL PRN PRN Polyethylene Glycol (Polyethylene Glycol 3350 17 Gm Packet) 17 gm PO DAILY PRN PRN PRN Reason: Constipation Quetiapine Fumarate (Quetiapine 25 Mg Tab) 25 mg PO DAILY PRN PRN Last Admin: 04/19/22 18:06 Dose: 25 mg Sodium Chloride (Normal Saline Flush 10 Ml Syr) 0 ml IVP PRN PRN Last Admin: 04/20/22 00:37 Dose: 20 ml Vitamin B Complex/Vitamin C (Vitamins B Comp W/C Tab) 1 tab PO DAILY [facility] Last Admin: 04/19/22 07:23 Dose: 1 tab METHODS: A 21 channel digitized electroencephalogram was performed in the [facility] Med/Surg Floor or ICU. The 10/20 international system of electrode placement was used and bipolar and referential electrode montages were recorded. In addition to EEG the patient was monitored for EKG and lateral/vertical eye movements. Activation procedures of photic stimulation and hyperventilation were performed if applicable. Video was used during activation procedures and during events where applicable. The duration of the recording was ~14 hours. DESCRIPTION OF EEG: Waking background activity: During maximal wakefulness a 6-Hz posterior background rhythm was present which was well-modulated, symmetrical, reactive to eye opening, and of moderate voltage. Faster frequencies were present in the bilateral anterior head regions. There was a normal anterior-posterior voltage gradient. Drowsy and sleeping background activity: During drowsiness, there was attenuation of the posterior dominant background rhythm and vertex waves. Normal stage II and III sleep was present with symmetrical sleep spindles, K- complexes, and vertex waves with slowing of the background rhythm to delta/theta frequencies. REM sleep manifested by rapid lateral eye movements and faster background rhythms was recorded. Arousal was unremarkable. The recording was limited as the left hemisphere electrodes were pulled off at ~22:30 on 04/19/22 and the right hemisphere electrodes at ~00:00 on 04/20/22. Interictal abnormalities: There was generalized, moderate-amplitude, polymorphic theta and delta slowing throughout the recording. Ictal findings: No events captured. Activating Procedures: Photic stimulation and hyperventilation were not performed. EKG: EKG revealed normal sinus rhythm./sinus bradycardia. INTERPRETATION: This long-term EEG is abnormal due to generalized slowing and slowing of the background rhythm. PRIOR EEG: -vEEG (03/24/22-03/26/22 at [facility]): moderate generalized slowing with more focal left hemisphere slowing. CLINICAL CORRELATION: The background slowing is suggestive of a moderate diffuse cerebral encephalopathy of broad differential including toxic-metabolic etiology. No focal regions of cerebral dysfunction or epileptiform activity was present. Clinical correlation is advised. Anastacia Carlos MD
[2022-04-20] MEDS: levETIRAcetam 500 MG TAB 1500 MG PO ×2 (08:59→19:49)
[2022-04-20] MEDS: Atorvastatin 20 MG TAB PO (08:59)
[2022-04-20] MEDS: Docusate Sodium 100 MG CAP PO (08:59)
[2022-04-20] MEDS: Cyanocobalamin 500 MCG TAB 1000 MCG PO (08:59)
[2022-04-20] MEDS: Vitamins B Comp w/C TAB 1 TAB PO (08:59)
[2022-04-20] MEDS: Multivitamin w/Minerals TAB 1 TAB PO (08:59)
[2022-04-20] MEDS: Carbidopa 25/Levodopa 100 TAB PO ×3 (09:02→19:50)
--- NOTE | 2022-04-20 14:17 | W.PM.PROGNOT ---
Date of Service Date of service: 04/20/22 Time of Service: 14:17 Assessment and Plan Assessment and plan (1) Unresponsive episode: Status: Acute Assessment and plan: Suspect syncope in setting of hypotension; however, need to also consider seizure or a post-ictal state, or a CVA. Consider also a side effect of keppra. CT head negative. BPs normally low, per . He did receive an IV bolus 1L. Monitor BPs and mental status closely in ICU. Echocardiogram with EF of 60%. Was in NSR during the episode on tele. [employer]. EEG performed overnight but only able to obtain over a 5 hour period; he pulled off electrodes. No seizure focus/activity noted. + generalized slowing. Anesthesia consulted for LP. (2) Seizure: Status: Chronic Assessment and plan: Continue increased dose of keppra, per [facility] recommendations. See above Previously hospitalized at [facility] for continuous EEG. The patient has no evidence of UTI - it was ruled out with a negative UA in the ED. (3) Parkinson's disease: Status: Chronic Assessment and plan: Neurology increased sinemet dosage. PT reconsulted. 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 However, I cannot rule out post-ictal state or side effect of keppra. Neurology involved. (5) Dementia with behavioral disturbance: Status: Suspected Assessment and plan: As above. Continue prn ativan, however we are finding that seroquel is also effective. (6) DVT prophylaxis: Status: Acute Assessment and plan: SC heparin (7) Discharge planning issues: Status: Acute Assessment and plan: Full code at this time Changed to med-surg status. Discussed with DR Love. There is a possibility of needing transfer to a tertiary care facility if it is deemed that he requires 24 hr EEG monitoring. Subjective Subjective Patient reports: afebrile; denies shortness of breath Interval history since last seen: Less confused. Cooperative. Answers questions. Exam Narrative Exam Narrative: General: somnolent male lying supine. Awake. Mumbles but clear enough to understand. HEENT: sclera clear. MMM Heart: RRR, no murmur Lungs: CTAB Abdomen: soft, nontender, nondistended Extremities: no edema BLEs. Objective Last Vital Signs Temp 36.6 C 06/28/22 08:00 Pulse 66 04/20/22 08:00 Resp 12 04/20/22 08:01 BP 144/94 H 04/20/22 08:00 Pulse Ox 98 04/20/22 06:48 Laboratory Results - last 24 hr 04/16/22 04/19/22 04/20/22 16:33 14:00 05:34 WBC RBC Hgb Hct MCV MCH MCHC RDW Plt Count MPV Immature Gran % Neutrophils % Lymphocytes % Monocytes % Eosinophils % Basophils % Nucleated RBC % Absolute Neutrophils Absolute Lymphocytes Absolute Monocytes Absolute Eosinophils Absolute Basophils Sodium 141 Potassium 3.8 Chloride 105 Carbon Dioxide 27.6 Anion Gap 8.4 BUN 13 Creatinine 0.8 Estimated GFR/1.73 m2 >= 60.00 Glucose 95 Calcium 9.0 Magnesium 2.3 Urine Color Yellow Urine Clarity Clear Urine pH 6.5 Ur Specific [place] 1.020 Urine Protein Negative Urine Ketones Trace H Urine Blood Negative Urine Nitrite Negative Urine Bilirubin Negative Urine Urobilinogen 2.0 H Ur Leukocyte Esterase Negative Urine Glucose Negative Levetiracetam 28.0 04/20/22 05:34 WBC 7.31 RBC 4.71 Hgb 14.4 Hct 42.9 MCV 91 MCH 30.6 MCHC 33.6 D RDW 11.9 Plt Count 273 MPV 9.3 Immature Gran % 0.4 Neutrophils % 61.7 Lymphocytes % 22.8 Monocytes % 11.9 Eosinophils % 2.5 Basophils % 0.7 Nucleated RBC % 0.0 Absolute Neutrophils 4.51 Absolute Lymphocytes 1.67 Absolute Monocytes 0.87 H Absolute Eosinophils 0.18 Absolute Basophils 0.05 Sodium Potassium Chloride Carbon Dioxide Anion Gap BUN Creatinine Estimated GFR/1.73 m2 Glucose Calcium Magnesium Urine Color Urine Clarity Urine pH Ur Specific [place] Urine Protein Urine Ketones Urine Blood Urine Nitrite Urine Bilirubin Urine Urobilinogen Ur Leukocyte Esterase Urine Glucose Levetiracetam
--- NOTE | 2022-04-20 15:10 | W.PM.PROGNOT ---
Date of Service Date of service: 04/20/22 Time of Service: 15:10 Assessment and Plan Assessment and plan (1) Unresponsive episode: Status: Acute (2) Seizure: Status: Chronic (3) Altered mental status: Status: Acute (4) Parkinson's disease: Status: Chronic Assessment and plan: #1. Altered mental status/decline in function over 1-2 months, with disinhibition/hypersexuality. Unclear etiology. Could be multifactorial. It sounds like he was having breakthrough seizures at the detention, likely due to lowered dose of levetiracetam. He has had no obvious seizures since admission. [id number] with encephalopathy only. Mentation did improve during [facility] admission after seizure cessation, albeit slowly. So it's possible he simply needs more time. However, I think further work-up should be pursued in the meantime. I recommend LP testing for CSF cell count, protein, glucose, culture, paraneoplastic panel, WNV, herpes panel. Would also check serum paraneoplastic panel, RPR, heavy metal screen, tick panel (latter is pending). Otherwise, a neurodegenerative process is also in the differential. His baseline was quite sedentary/low cognitive stress so a dementing process could easily have been missed. For hypersexuality and sundowning along with insomnia, recommend scheduling Seroquel 25mg at 6pm vs HS. Dose can be titrated as needed. He did have an event on 04/18/22. Dissimilar to seizure events. Question hypotensive event vs vasovagal. No recurrence. I would continue to hold baclofen. Per , he hasn't complained of any back pain in last month and wasn't using it. #2. Epilepsy. Continue LEV 1500mg BID. Will monitor on EEG overnight. #3. Parkinsons. Continue home dose of Sinemet 2 tabs 25/100mg TID at 8am-1pm-8pm. Ok to hold rasagiline while here. 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 He should f/up with his primary neurologist following hospital admission. Please call with any further questions or concerns. Subjective Subjective Interval history since last seen: Overnight EEG. Unfortunately, he pulled off all of his wires within 5 hours. No seizure activity seen during that time but c/w moderate encephalopathy. Agitated last night. Did not sleep. Sexually disinhibited and it appears this has been going on for last several weeks at detention as well. Sleeping this afternoon. Exam Narrative Exam Narrative: Exam deferred. Patient is sleeping. Objective Last Vital Signs Temp 97.9 F 04/20/22 08:00 Pulse 66 04/20/22 08:00 Resp 12 04/20/22 08:01 BP 144/94 H 04/20/22 08:00 Pulse Ox 98 04/20/22 06:48 Laboratory Results - last 24 hr 04/16/22 04/20/22 04/20/22 16:33 05:34 05:34 WBC 7.31 RBC 4.71 Hgb 14.4 Hct 42.9 MCV 91 MCH 30.6 MCHC 33.6 D RDW 11.9 Plt Count 273 MPV 9.3 Immature Gran % 0.4 Neutrophils % 61.7 Lymphocytes % 22.8 Monocytes % 11.9 Eosinophils % 2.5 Basophils % 0.7 Nucleated RBC % 0.0 Absolute Neutrophils 4.51 Absolute Lymphocytes 1.67 Absolute Monocytes 0.87 H Absolute Eosinophils 0.18 Absolute Basophils 0.05 Sodium 141 Potassium 3.8 Chloride 105 Carbon Dioxide 27.6 Anion Gap 8.4 BUN 13 Creatinine 0.8 Estimated GFR/1.73 m2 >= 60.00 Glucose 95 Calcium 9.0 Magnesium 2.3 Levetiracetam 28.0
--- NOTE | 2022-04-20 16:26 | PDOC.CMPRO ---
- If Service Date Differs Date of service: 04/20/22 Time of Service: 16:26 Care Management Progress Note S/O: Claudio continues to be closely monitored and treated. PT on hold due to acuity. Neurology consult and LP anticipated for today. CM continues to follow. A: 71 year old male admitted to [facility] 04/17/22 for uncontrolled seizure disorder P: Claudio will be discharged back to the [facility] when medically cleared by provider. He will follow up with neurology and his discharge plan of care as instructed. He will be transported via EMS when ready. CM will continue to follow.
--- NOTE | 2022-04-20 18:41 | W.ANESPROC ---
Lumbar Puncture Date Performed: 04/20/22 Procedure Time: 18:30 Requesting Provider: Lon Wilder Procedure Location: Med/Surg Standard Monitors Applied: ECG, Blood Pressure and SpO2 Patient Position: Sitting Timeout Performed: Yes Sedation Given (Indicate Dose Given): No Sedation given Patient Mental Status: Awake (pt already somewhat confused and uncooperative, 1 RN and 2 DIRECTOR OF PHYSICAL SECURITY's in room for safety/positioning) Sterility: Hand Hygiene, Surgical Cap, Surgical Mask, Sterile Gloves, Sterile Drape/Sheet, Eye Protection and Chlorhexidine Placement Site: L3-L4 Interspace Spinal Needle Type: Handy 25 Gauge Needle Length: 3.5 Inch Lumbar Puncture Procedure: Site Prepped, Sterile Drape Placed, 1% Lidocaine to skin and subcutaneous tissue with 25G needle, Introducer Needle Used, Spinal Needle Placed, Negative Heme, Positive CSF Flow, CSF Specimen placed into Tubes in Sequential Order and Specimen Labeled, Sent to Lab Ultrasound: Not Used Paresthesia: None Number of Previous Attempts by Other Providers: 0 Number of Attempts (See previous attempts in note section): 1 Procedure Tolerated: No Complications and Patient tolerated well Procedure Outcome: Successful Performed By: Mic Canseco
[2022-04-20 19:06] LABS: Clarity Clear; RBC 0 /mm3 (0-5); Tube # 4; Xanthochromia Absent
[2022-04-20 19:07] LABS: WBC 4 /uL (0-5)
[2022-04-20 19:19] LABS: Glucose (CSF) 67 mg/dL (40-70); Total Protein (CSF) 79 mg/dL (15-45)
[2022-04-20] MEDS: Gabapentin 100 MG CAP PO (19:50)
[2022-04-20] MEDS: Melatonin 3 MG TAB 6 MG PO (19:50)
[2022-04-21] MEDS: QUEtiapine 25 MG TAB PO ×2 (03:25→21:01)
[2022-04-21] MEDS: LORazepam 0.5 MG TAB PO ×2 (03:25→21:58)
[2022-04-21 03:38] VITALS: BP 134/87; PULSE 77; RESP 18; TEMP 36.9; O2SAT 98
[2022-04-21 08:24] VITALS: BP 152/98; PULSE 72; RESP 18; TEMP 36.5; O2SAT 97
[2022-04-21] MEDS: levETIRAcetam 500 MG TAB 1500 MG PO ×2 (08:53→21:00)
[2022-04-21] MEDS: Vitamins B Comp w/C TAB 1 TAB PO (08:54)
[2022-04-21] MEDS: Atorvastatin 20 MG TAB PO (08:54)
[2022-04-21] MEDS: Carbidopa 25/Levodopa 100 TAB PO ×3 (08:54→21:01)
[2022-04-21] MEDS: Multivitamin w/Minerals TAB 1 TAB PO (08:54)
[2022-04-21] MEDS: Cyanocobalamin 500 MCG TAB 1000 MCG PO (08:54)
[2022-04-21] MEDS: Docusate Sodium 100 MG CAP PO (08:55)
--- NOTE | 2022-04-21 10:48 | PDOC.CMPRO ---
- If Service Date Differs Date of service: 04/21/22 Time of Service: 10:48 Care Management Progress Note S/O: Claudio is sitting up in his recliner visiting with his when CM met with him. He is sleepy. Claudio had a Neurology consult and LP yesterday. Per MD, Claudio is medically cleared for discharge. SNF referrals are pending at [facility] &, [facility] and [place]. CM spoke with patients and she is also willing have Claudio discharge home with New [facility] services, if needed. CM continues to follow. A: 71 year old male admitted to [facility] 04/17/22 for uncontrolled seizure disorder P: Claudio will be discharged to SNF for STR vs home with New [facility] RN/PT/OT/SENIOR HUMAN RESOURCES REPRESENTATIVE when medically cleared by provider. He will follow up with neurology and his discharge plan of care as instructed. He will be transported via EMS when ready. CM will continue to follow.
--- NOTE | 2022-04-21 10:48 | CMPROGNOTE_ITS ---
- If Service Date Differs Date of service: 04/21/22 Time of Service: 10:48 Care Management Progress Note S/O: Claudio is sitting up in his recliner visiting with his when CM met with him. He is sleepy. Claudio had a Neurology consult and LP yesterday. Per MD, Claudio is medically cleared for discharge. SNF referrals are pending at [facility] &, [facility] and [place]. CM spoke with patients and she is also willing have Claudio discharge home with New [facility] services, if needed. CM continues to follow. A: 71 year old male admitted to [facility] 04/17/22 for uncontrolled seizure disorder P: Claudio will be discharged to SNF for STR vs home with New [facility] RN/PT/OT/PRESSURE TESTER OPERATOR when medically cleared by provider. He will follow up with neurology and his discharge plan of care as instructed. He will be transported via EMS when ready. CM will continue to follow.
[2022-04-21 11:20] VITALS: BP 102/82; PULSE 86; RESP 18; TEMP 36.5; O2SAT 94
--- NOTE | 2022-04-21 13:19 | CHAPLAIN ---
I had a short visit with Claudio's . Claudio was sleeping. She said she was told that Claudio will be discharged today so she is waiting to speak with the hospitalist. I provided tea and support for his .
--- NOTE | 2022-04-21 15:22 | W.PM.PROGNOT ---
Date of Service Date of service: 04/21/22 Time of Service: 15:22 Assessment and Plan Assessment and plan (1) Unresponsive episode: Status: Acute Assessment and plan: Suspect syncope in setting of hypotension; however, need to also consider seizure or a post-ictal state, or a CVA. Consider also a side effect of keppra. CT head negative. BPs normally low, per . He did receive an IV bolus 1L. No further episodes. Echocardiogram with EF of 60%. Was in NSR during the episode on tele. [employer]. EEG performed but only able to obtain over a 5 hour period; he pulled off electrodes. No seizure focus/activity noted. + generalized slowing. LP WNL. Paraneoplastic lab, HSV PCR and West Nile Virus pending. (2) Seizure: Status: Chronic Assessment and plan: Continue increased dose of keppra, per [facility] recommendations. See above Previously hospitalized at [facility] for continuous EEG. The patient has no evidence of UTI - it was ruled out with a negative UA in the ED. (3) Parkinson's disease: Status: Chronic Assessment and plan: Neurology increased sinemet dosage. PT and OT reconsulted. 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 He is improving and is more alert and oriented. (5) Dementia with behavioral disturbance: Status: Suspected Assessment and plan: As above. Continue prn ativan, however we are finding that seroquel is also effective. Consider scheduled seroquel; timing with onset of any behavior issues that have a pattern related to time of day. (6) DVT prophylaxis: Status: Acute Assessment and plan: SC heparin (7) Discharge planning issues: Status: Acute Assessment and plan: Full code at this time SNF referrals sent; not returning to the [facility] for further rehab. Subjective Subjective Patient reports: feels better and tolerating a regular diet; denies diarrhea, nausea, vomiting or shortness of breath Interval history since last seen: Working with PT No seizure activity Exam Narrative Exam Narrative: General: 2 visits today; lying in bed initially then sitting in chair. More conversant. + dysarthria / baseline. HEENT: sclera clear. MMM Heart: RRR, no murmur Lungs: CTAB Abdomen: soft, nontender, nondistended Extremities: no edema BLEs. No rigidity, cogwheeling. Objective Last Vital Signs Temp 36.5 C 04/21/22 11:20 Pulse 86 04/21/22 11:20 Resp 18 04/21/22 11:20 BP 102/82 04/21/22 11:20 Pulse Ox 94 04/21/22 11:20 Laboratory Results - last 24 hr 04/20/22 04/20/22 04/20/22 18:33 18:36 18:36 Xanthochromia Absent CSF Tube Number 4 CSF Color Colorless CSF Clarity Clear CSF WBC 4 CSF RBC 0 CSF Diff Comment CSF Glucose 67 CSF Total Protein 79 H CSF Paraneoplas Syn Int Cancelled CSF Anti-Neuronal Typ 1 Cancelled CSF Anti-Neuronal Typ 2 Cancelled CSF Anti-Neuronal Typ 3 Cancelled CSF AGNA-1 Cancelled Purkinje Cyto Ab Trace Cancelled CSF Purkinje Cyto Ab 1 Cancelled CSF Purkinje Cyto Ab 2 Cancelled CSF Amphiphysin Ab Cancelled CSF CRMP-5 IgG Ab Cancelled Paraneoplas Reflex Add Cancelled
--- NOTE | 2022-04-21 15:35 | PT.INIE ---
PT Notes Visit Reasons: Uncontrolled Seizure Disorder Inpatient Physical Therapy Evaluation Date: 04/21/2022 Referring Doctor: Lon Wilder MD PT Orders: PT CONSULT: Evaluation Precautions: Fall risk Patient Profile/Admitting Diagnosis: 71-year-old male with Parkinson's recently admitted with seizures and behavioral abnormalities PMHX: All Active Problems?(Updated 04/17/22 @ 07:00 by Mic Price) Cognitive impairment (Acute) Parkinson's disease (Chronic) Seizure (Chronic) Social History/Home Situation: Was living at home with his in a two-story private home with his bedroom up on the second floor. As of February though he was sleeping on the first floor which also had a bathroom with a combo tub shower. It did not have grab bars or flexible shower hose. 2 steps entering the home. As his condition deteriorated, he had been staying at the [facility] for rehabilitation. He would like to eventually return home Current Functional Limitations: Requires assistance with most functional tasks Equipment Owned/DME: Walker and cane Subjective: Mildly confused but follows simple commands appropriately Objective: General Observation: Into the room with the patient napping. He is drooling on the right side of his mouth. His speech is garbled. Mental Status: Initially lethargic, disoriented to place and time but knew Ketan was president Pain: No complaints of pain offered Vital Signs: His resting pulse was 76 bpm and regular ROM: He had mild hypomobility with all articular structures but without pain on movement Strength: Has full voluntary movement with strength generally rated +3/5 Neuro: Hyporeflexive but symmetrical, negative Babinski's bilaterally, negative spasticity or rigidity, fingertips to nose is an accurate but appears to be more from his visual deficit. No ataxia noted. Rapid repetitive arm movements intact. Heel to knee is difficult. Proprioception intact Bed Mobility/Transfers: Patient required moderate assistance with assuming the supine to sitting to standing positions of 1 person Gait: Ambulated with an FW W with contact guarding with short, shuffling steps. He is able to walk without an assistive device but required moderate contact guarding with similar gait mechanics. He was slightly anterior flexed with minimal arm movement Balance: His unilateral standing balance was less than 2 seconds requiring contact guarding. Static Sitting: Good Dynamic Sitting: Good Static Standing: Fair Dynamic Standing: Fair Special Tests: Mobility Limitations Standardized Measure [employer] AM-PAC 6 clicks Basic Mobility Inpatient Short Form: Raw Score: 14 standardized Score: 2.95 CMS Score: 61.29% Informed Consent/Education: Patient instructed in purpose of PT consult and plan of care. Assessment: Patient is a 71year old male referred to physical therapy services with the diagnosis of Parkinson's, seizures and behavior abnormalities. Patient presents with clinical signs and symptoms consistent with this diagnosis, as demonstrated by the following impairment level findings: Generalized weakness throughout without spasticity or rigidity with typical parkinsonian gait. Impairments are contributing to the following functional limitations: Difficulty with bed mobility activities and assistance with gait mechanics. Because of these impairments, I recommend rehabilitation at extended-care facility rather than in the home environment with home health services. Patient is assessed as a Moderate 54041 complexity based on the following: History: See comorbidities and social history Examination: See above for functional imitations impairments Presentation: Evolving Decision Making: Moderate complexity based on his clinical findings Goals: Goals X1 week 1. Supine-Sit independent 2. Sit-Supine independent 3. Sit-Stand independent 4. Stand-Sit independent 5. Bed-Chair independent 6. Chair-Bed independent 7. Gait ambulation with a FWW with minimal contact guarding for greater than 200 feet with a stable gait and improve gait mechanics 8. Stairs climb 3-4 steps with a railing 9. Improve balance Plan of Care/Treatment Plan: 1-2x/day, 7 days/week x 1 week. Plan of care has been reviewed with the [facility] providing the service under Physical Therapy direction. Initiate Physical Therapy intervention for strengthening, bed mobility, transfers, gait, stairs, balance training, use of assistive device. DISCHARGE RECOMMENDATIONS: SNF for continued rehabilitation TREATMENT CODE/TIME: 9716 2/60 minutes Disclaimer: This note was created using [employer] voice recognition software. It was reviewed for major content. However, there may be multiple small discrepancies and errors due to the voice recognition aspects of the software.
[2022-04-21 15:52] VITALS: BP 127/85; PULSE 78; RESP 19; TEMP 36.8; O2SAT 96
[2022-04-21] MEDS: Gabapentin 100 MG CAP PO (21:00)
[2022-04-21] MEDS: Melatonin 3 MG TAB 6 MG PO (21:00)
--- NOTE | 2022-04-21 23:25 | NUR.NOTE ---
Nursing Note: This selling underwriter, the orienting CC (Nano), and the patient's RN (Zayda) reviewed the MAR for medications to assist with anxiety and agitation for the patient. The order for seroquel read 25 mg PO Daily. The last dose given was 0325 on this date 04/21/22. It was decided that the patient would benefit from the medication despite only being 18 hours (not the ordered 24) from the last dose given. The patient was hiding under the covers at the foot of the bed and was paranoid and shouting that the equipment superintendent were going to get him. For patient safety, a sitter was placed near the door to the room until the patient calmed and became rested
[2022-04-21 23:54] LABS: HSV 1 DNA Result Negative (Negative); HSV 2 DNA Result Negative (Negative)
[2022-04-22 05:13] VITALS: BP 123/82; PULSE 96; RESP 18; TEMP 36.2; O2SAT 96
[2022-04-22 07:41] VITALS: BP 116/77; PULSE 66; RESP 18; TEMP 36.8; O2SAT 97
[2022-04-22] MEDS: levETIRAcetam 500 MG TAB 1500 MG PO ×2 (08:17→20:39)
[2022-04-22] MEDS: Atorvastatin 20 MG TAB PO (08:18)
[2022-04-22] MEDS: Multivitamin w/Minerals TAB 1 TAB PO (08:18)
[2022-04-22] MEDS: Cyanocobalamin 500 MCG TAB 1000 MCG PO (08:18)
[2022-04-22] MEDS: Vitamins B Comp w/C TAB 1 TAB PO (08:18)
[2022-04-22] MEDS: Carbidopa 25/Levodopa 100 TAB PO ×3 (08:19→20:39)
[2022-04-22] MEDS: Docusate Sodium 100 MG CAP PO (08:20)
--- NOTE | 2022-04-22 13:11 | PT.INTREAT ---
Date of service: 04/22/22 Time of Service: 10:00 PT Notes Visit Reasons: Uncontrolled Seizure Disorder Inpatient Physical Therapy Treatment Note [facility] Date: 04/22/2022 PRECAUTIONS: Fall, Activity as tolerated, PD SUBJECTIVE: Claudio is pleasant and agreeable to participating in PT. He reports an improvement in his mobility over the past few days. His is present during PT session. She indicates significant improvement in mobility and mentation today although feels that she is not equipped to manage his current level of function at home. OBJECTIVE: PAIN: No c/o pain BED MOBILITY/TRANSFERS Sit-stand: SBA Stand-sit: SBA Bed-Chair: CGA Chair-bed: CGA GAIT Assistive Device: FWW No AD Weight bearing: Full Assist: CGA Distance: 100' with FWW + 50' without AD Deviation: Single-step cueing throughout for large amplitude movements, occasional assist with FWW with turns THEREX: Patient was instructed in use and benefits of NuStep biking, which he completes with SBA and cueing throughout for pacing x8 minutes on level 4. He is also instructed in functional [id number] activity from various heights without UE support with SBA. STAIRS: Up 3x4 and down 2x6 using B rails and a step-to pattern with SBA and cueing for movement initiation. ASSESSMENT: Patient tolerated session well, without complaint. Large amplitude training given throughout requiring consistent single-step cueing due to noted cognitive impairment. He demonstrates improved gait mechanics without use of FWW, although continues to require CGA for safety at this time. PLAN: Continue with gait training and balance retraining/strengthening for continued progression toward prior level of function. TREATMENT CODE/TIME: 30 minutes; 58093 x2 (10:00)
--- NOTE | 2022-04-22 14:34 | PTTR_ITS ---
PT Notes Visit Reasons: Uncontrolled Seizure Disorder Inpatient Physical Therapy Treatment Note [facility] Date: 04/22/22 PRECAUTIONS:fall, seizure, standard SUBJECTIVE: Claudio states that he is ready for PT. His is present at time of session, and provides excellent history. She states that they are hopeful that Claudio will be able to return home with fulltime care, but she does not feel that she's able to manage his current mobilty level. He struggled with use of the FWW this morning, and it seemed more of a hindrance than anything. OBJECTIVE: PAIN: denies BED MOBILITY/TRANSFERS Sit-stand: supervision, with need for cues for amplitude of movement Stand-sit: supervision, with need for cues for safety. Patient demonstrates i nconsistencies in safety and technique with multiple repetitions of transfers, at times requiring cues for full turning, backing to chair, etc. GAIT Assistive Device: none Weight bearing: full Assist: CGA X 2 Distance: 150' Deviation: Left trendelenburg. Slow, shuffling gait, which improves with simple cues for large amplitude of walking. Increased gait deviations with cognitive load, with patient demonstrating significant shuffling with distractions in hallway. Easily cued out of deviations. THEREX: sit-stand, cues for amplitude 10x chair -to-chair, 10x, cues for big steps, big turns seated reach out and up, 10x, consistent visual, verbal and tactile cues required throughout ASSESSMENT: Difficulty managing assistive device, and improved safety demonstrated with ambulation with CGAx2 vs walker. Continued limitations in safety with transfers and ambulation due to Parkinsonian gait pattern and cognitive status. Patient will benefit from rehab stay for continued gait and balance retraining prior to transitioning back home with assistance. PLAN: Continue PT for progress toward established goals. TREATMENT CODE/TIME: 2:10-2:35 ([id number]) Dorita Flores, PT, DPT [facility]
[2022-04-22 14:56] VITALS: BP 106/72; PULSE 83; RESP 19; TEMP 36.4; O2SAT 97
--- NOTE | 2022-04-22 14:58 | PDOC.CMPRO ---
- If Service Date Differs Date of service: 04/22/22 Time of Service: 14:58 Care Management Progress Note S/O: Claudio had a great day, per his and PT he is gaining mobility and cleared mentally. SNF referrals are pending at [facility], [facility], [facility], [facility]. CM spoke with patients and she is also willing have Claudio discharge home with [facility] services, if needed. CM continues to follow. A: 71 year old male admitted to [facility] 04/17/22 for uncontrolled seizure disorder P: Claudio will be discharged to SNF for STR vs home with New [facility] RN/PT/OT/INVENTORY AUDIT CLERK when medically cleared by provider. He will follow up with neurology and his discharge plan of care as instructed. He will be transported via EMS when ready. CM will continue to follow.
[2022-04-22] MEDS: QUEtiapine 25 MG TAB PO (16:48)
[2022-04-22 22:58] VITALS: BP 110/72; PULSE 83; RESP 19; TEMP 36.7; O2SAT 97
[2022-04-23 06:58] LABS: HCT 40.2 % (40.0-50.0); HGB 14.2 g/dL (13.5-17.5); MCH 31.4 pg (27.0-33.0); MCHC 35.3 % (32.0-36.0); MCV 89 fL (80-95); MPV 8.9 fL (8.0-11.0); Platelet Count 253 10^3/uL (130-400); RBC 4.52 10^6/uL (4.36-5.78); RDW 11.9 % (11.8-14.1); RDW-SD 38.8 fL; WBC 6.74 10^3/uL (4.4-10.8)
[2022-04-23 07:54] VITALS: BP 132/86; PULSE 77; RESP 17; TEMP 36.5; O2SAT 97
--- NOTE | 2022-04-23 08:27 | OTIE_ITS ---
Occupational Therapy Notes Inpatient Occupational Therapy Evaluation Date: 04/23/22 Referring Doctor: Dr. Wilder OT Orders: Non urgent Precautions: Fall, standard, Full PATIENT PROFILE/ADMITTING DIAGNOSIS: Pt is a 71 year old male who was admitted to [facility] with the following dx of altered mental status, unresponsive episode, dementia with behavioral disturbance, cognitive impairment, Parkinsons Disease, Seizure. Past Medical History: All Active Problems?(Updated 04/17/22 @ 07:00 by Mic Price) Cognitive impairment (Acute) Parkinson's disease (Chronic) Seizure (Chronic) Social History/Home Situation: Pt tells OT that he lives with someone else and that he is (I) with his ADLs. He is a poor historian in the sense of being able to describe his (A) level at baseline. SUBJECTIVE: Pt was sitting on side of the bed, pt is agreeable to OT consult and is alert this morning. OBJECTIVE: General Observation: Pleasant, agreeable to OT consult. Mental Status: A&Ox2 Pain: no c/o pain ROM: RUE AROM WFL L UE AROM WFL STRENGTH: RUE 4/5 throughout LUE4/5 throughout FUNCTIONAL MOBILITY/ADLS: Transfers with FWW BATHING sitting on side of the bed, pt requires vc throughout Bathing UE (I) face, (B) UE, max (A) back and hair Bathing LE (I) dylan area and (B) LE DRESSING sitting on side of the bed Dressing UE (I) don and doffing hospital gown Dressing LE (I) don and doffing (B) socks GROOMING (I) with brushing hair BALANCE: Static sitting Normal Dynamic Sitting Normal Static Standing Good Dynamic Standing Fair-Good SPECIAL TESTS: Daily Activity Limitations Standardized Measure [facility] AM -PAC ?6 clicks? Daily Activity Inpatient Short Form: Raw score: 21 Standardized score: 44.27 CMS score: 32.79% INFORMED CONSENT/EDUCATION: Pt instructed in purpose of OT Consult and plan of care. ASSESSMENT: Patient is a 71-year-old male referred to occupational therapy services with diagnosis of altered mental status, unresponsive episode, dementia with behavioral disturbance, cognitive impairment, Parkinsons Disease, Seizure. Patient presents with clinical signs and symptoms consistent with dx, as demonstrated by the following impairment level findings/functional limitations: Impairments in ADL/IADL and leisure activities, decreased functional activity tolerance, decreased functional mobility required for performance of ADLS. AMPAC score 21 Patient is assessed as a Low 02753 complexity based on the following: History: see above Examination: see functional limitations as noted above Presentation: evolving Decision Making: AMPAC Score 21 GOALS Goals x1 week 1. Transfers (I) 2. Bathing- standing at sink (I) UE/LE 3. Toileting on toilet (I) PLAN OF CARE/TREATMENT PLAN: 1x/day, 5 days/ week x 1week Initiate Occupational Therapy Services for bathing, dressing, grooming, toileting, eating, transfer training. DISCHARGE RECOMMENDATIONS SNF vs. Home with HH services when medically cleared per MD. TREATMENT TIME/MINUTES/CODES 21118, 47061, 15 minutes (07:45) [facility]
[2022-04-23] MEDS: Heparin 5,000 UNITS/ML VIAL 5000 UNITS SC ×2 (08:59→15:58)
[2022-04-23] MEDS: Docusate Sodium 100 MG CAP PO (09:00)
[2022-04-23] MEDS: Cyanocobalamin 500 MCG TAB 1000 MCG PO (09:00)
[2022-04-23] MEDS: Carbidopa 25/Levodopa 100 TAB PO ×3 (09:00→20:00)
[2022-04-23] MEDS: Vitamins B Comp w/C TAB 1 TAB PO (09:00)
[2022-04-23] MEDS: levETIRAcetam 500 MG TAB 1500 MG PO ×2 (09:00→20:00)
[2022-04-23] MEDS: Atorvastatin 20 MG TAB PO (09:00)
[2022-04-23] MEDS: Multivitamin w/Minerals TAB 1 TAB PO (09:01)
--- NOTE | 2022-04-23 12:04 | PTTR_ITS ---
Date of service: 04/23/22 Time of Service: 09:30 PT Notes Visit Reasons: Uncontrolled Seizure Disorder Inpatient Physical Therapy Treatment Note [facility] Date: 04/23/2022 PRECAUTIONS: Fall, seizure, activity as tolerated SUBJECTIVE: Claudio is pleasant and agreeable to participating in PT. He reports that he had a better night, although woke up with a repetitive dream, otherwise sleeping and feeling well. His is present during session, stating that she also appreciates improvements in his mobility and mentation/behaviors. OBJECTIVE: In p.m., attempt gait training with patient. He demonstrates decreased ability to process instructions as well as inability to correct short, shuffling gait, even with simple cueing for large amplitude movements. Patient was incontinent of urine, requiring complete change and wash up. Per primary nurse, patient has been awake since criminal justice social worker and may be over-tired, which could contribute to his cognitive and physical limitations this afternoon. Per suggestion, will hold on further PT interventions this afternoon to allow patient to rest. PAIN: No c/o pain BED MOBILITY/TRANSFERS Sit-stand: S with cueing for large amplitude movements Stand-sit: S with cues for safety and large amplitude movements GAIT Assistive Device: No AD Weight bearing: Full Assist: CGA Distance: ~500' Deviation: Trendelenburg gait on L, slow pacing, shuffling gait which improves with single-step cues for large amplitude walking including arm swings Instructed in stop/go gait, as well as stop/go with turns, requiring CGA for safety and cueing for large amplitude movement patterns. THEREX: Patient was instructed in thplq-[id number] transitions with cueing for amplitude with forward and backward walking as well as with turns, [id number] with hand clap, alternating standing marches without UE support, seated [id number]-gr-[id number] reaching, standing reach [id number]-jv-[id number], and seated alternating UE and LE marching. Patient requires visual, verbal, and tactile cueing for appropriate exercise performance, specifically with multi-step activities, throughout. ASSESSMENT: Slightly improved safety with transfers and ambulation with single- step cueing for large amplitude movement patterns, demonstrating improved cognitive abilities to follow stop/go and turning commands. He also demonstrates improved ability to follow and complete multi-step activities, although does require verbal, visual and/or tactile cueing at all times. With patient's consistently improving mobility and cognitive processing, patient may be able to return to home with , with 24/7 care and participation in Parkinson's management PT programs, versus discharge to SNF for continued balance retraining for safety. PLAN: Continue with gait training, as well as with balance retraining for improved safety with mobility and activity tolerance. TREATMENT CODE/TIME: Session 1: 30 minutes; 13180 x2 (09:30) Session 2: 10 minutes; 36840 (13:25)
--- NOTE | 2022-04-23 12:48 | PDOC.CMPRO ---
- If Service Date Differs Date of service: 04/23/22 Time of Service: 12:48 Care Management Progress Note S/O: Claudio was sitting up in bed dozing when CM came to see him. His Fernanda was present and asked to speak to CM privately. She had many questions about what would be needed to safely care for Claudio at home. She had been told by his neurologist that a hospital bed would be best for him. The preferred plan was to have Claudio go to a SNF for continued rehab, however despite sending referrals to 10 facilities, no bed offers have been received. She did state that she would like to take him home and is encouraged by improvements in his behavior and work with PT. She shared that he has a lift recliner , a commode and weighted utensils and cups already at home. She enquired about home health services available and CM informed her that he would be able to receive nursing, PT, OT and ION EXCHANGE OPERATOR. Fernanda responded that she felt that would be very helpful. An order was placed for a semi-electric hospital bed with [facility] and Meals on Wheels will be ordered, at her request. A: 71 year old male admitted to [facility] 04/17/22 for uncontrolled seizure disorder P: Claudio will ideally be discharged to a SNF for STR before returning home. If no bed offer is received (and to date the only responses have been denials) Fernanda will take him home with [facility] RN/PT/OT/ION EXCHANGE OPERATOR when medically cleared by provider. A hospital bed has been ordered and a referral sent for meals on Wheels. He will follow up with neurology and his discharge plan of care as instructed. He will be transported via EMS when ready. CM will continue to follow.
--- NOTE | 2022-04-23 15:26 | W.PM.PROGNOT ---
Date of Service Date of service: 04/23/22 Time of Service: 15:41 Assessment and Plan Assessment and plan (1) Unresponsive episode: Status: Acute Assessment and plan: No recurrence. Significantly improved level of alertness. HSV testing of CSF neg. WNV testing pending; doubt will be +. (2) Seizure: Status: Chronic Assessment and plan: Continue increased dose of keppra, per [facility] recommendations. Previously hospitalized at [facility] for continuous EEG. (3) Parkinson's disease: Status: Chronic Assessment and plan: Neurology increased sinemet dosage. PT and OT working with pt; improving. Masked facies has significantly improved. Gait improving. 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 He is improving and is more alert and oriented. (5) Dementia with behavioral disturbance: Status: Suspected Assessment and plan: As above. Has been on daily seroquel and now taking a late afternoon dose that was effective yesterday/last PM. (6) DVT prophylaxis: Status: Acute Assessment and plan: SC heparin (7) Discharge planning issues: Status: Acute Assessment and plan: Full code at this time SNF referrals sent; not returning to the [facility] for further rehab. Doing better and appears he might be appropriate for d/c to home. Subjective Subjective Patient reports: feels better, tolerating a regular diet and afebrile; denies nausea, vomiting or shortness of breath Exam Narrative Exam Narrative: Sitting in chair. Smiles / conversant Const General: cooperative and no acute distress Nutritional Appearance: average body habitus Orientation: alert, oriented to person and oriented to place Eyes General: appearance normal, both eyes and all related structures Sclera: sclerae normal Resp Effort & Inspection: normal respiratory effort Auscultation: clear to auscultation bilaterally Cardio Rate: regular rate Rhythm: regular rhythm Heart Sounds: S1 normal and S2 normal Skin General skin exam: no rashes or lesions noted Neuro General: no focal motor deficits Cranial Nerves: facial strength normal Speech: other (Speech more fluent) Extrem General: no pedal edema and no calf tenderness Psych Appearance: grossly normal Affect: normal affect Objective Last Vital Signs Temp 36.5 C 04/23/22 07:54 Pulse 77 04/23/22 07:54 Resp 17 04/23/22 07:54 BP 132/86 04/23/22 07:54 Pulse Ox 97 04/23/22 07:54 Laboratory Results - last 24 hr 04/23/22 06:37 WBC 6.74 RBC 4.52 Hgb 14.2 Hct 40.2 MCV 89 MCH 31.4 MCHC 35.3 D RDW 11.9 Plt Count 253 MPV 8.9
--- NOTE | 2022-04-23 15:48 | W.PM.PROGNOT ---
Date of Service Date of service: 04/22/22 Time of Service: 15:50 Assessment and Plan Assessment and plan (1) Unresponsive episode: Status: Acute Assessment and plan: Resolved w/o recurrence. HSV and WNV on CSF pending. (2) Seizure: Status: Chronic Assessment and plan: Continue increased dose of keppra, per [facility] recommendations. Previously hospitalized at [facility] for continuous EEG. (3) Parkinson's disease: Status: Chronic Assessment and plan: Neurology increased sinemet dosage. PT and OT reconsulted; working well with therapies (4) Cognitive impairment: Status: Acute Assessment and plan: I suspect that this is, in fact, behavioral disturbance due to Parkinson's dementia vs post-ictal state. He is improving and is more alert and oriented. (5) Dementia with behavioral disturbance: Status: Suspected Assessment and plan: As above. AM Seroquel working well. Having evening agitation so will schedule late afternoon seroquel; adjust timing with onset of any behavior issues that have a pattern related to time of day. (6) DVT prophylaxis: Status: Acute Assessment and plan: SC heparin (7) Discharge planning issues: Status: Acute Assessment and plan: Full code at this time SNF referrals sent; not returning to the [facility] for further rehab. If continues to improve and behavior disturbances improve and can manage him at home, will likely d/c to home. Subjective Subjective Patient reports: no new complaints, feels better and afebrile; denies nausea, vomiting or shortness of breath Exam Narrative Exam Narrative: General: Working with PT. HEENT: sclera clear. MMM Heart: RRR, no murmur Lungs: CTAB Abdomen: soft, nontender, nondistended Extremities: no edema BLEs. No rigidity, cogwheeling. Objective Last Vital Signs Temp 36.5 C 04/23/22 07:54 Pulse 77 04/23/22 07:54 Resp 17 04/23/22 07:54 BP 132/86 04/23/22 07:54 Pulse Ox 97 04/23/22 07:54 Laboratory Results - last 24 hr 04/23/22 06:37 WBC 6.74 RBC 4.52 Hgb 14.2 Hct 40.2 MCV 89 MCH 31.4 MCHC 35.3 D RDW 11.9 Plt Count 253 MPV 8.9
[2022-04-23] MEDS: QUEtiapine 25 MG TAB PO (15:58)
[2022-04-23 16:34] VITALS: BP 111/77; PULSE 79; RESP 18; TEMP 36.7; O2SAT 99
[2022-04-23] MEDS: Gabapentin 100 MG CAP PO (20:00)
[2022-04-23] MEDS: Hydrocortisone 1% CR 30 GM TUBE TP (20:00)
[2022-04-23] MEDS: Melatonin 3 MG TAB 6 MG PO (20:00)
[2022-04-23] MEDS: Prazosin 1 MG CAP 2 MG PO (21:45)
[2022-04-24 05:00] VITALS: BP 124/83; PULSE 66; RESP 16; TEMP 36; O2SAT 99
[2022-04-24 07:58] VITALS: BP 119/79; PULSE 78; RESP 16; TEMP 35.8; O2SAT 98
[2022-04-24] MEDS: Hydrocortisone 1% CR 30 GM TUBE TP ×2 (07:59→20:59)
[2022-04-24] MEDS: Carbidopa 25/Levodopa 100 TAB PO ×3 (07:59→20:59)
[2022-04-24] MEDS: Cyanocobalamin 500 MCG TAB 1000 MCG PO (07:59)
[2022-04-24] MEDS: Multivitamin w/Minerals TAB 1 TAB PO (08:00)
[2022-04-24] MEDS: Docusate Sodium 100 MG CAP PO (08:00)
[2022-04-24] MEDS: Atorvastatin 20 MG TAB PO (08:00)
[2022-04-24] MEDS: Vitamins B Comp w/C TAB 1 TAB PO (08:00)
[2022-04-24] MEDS: levETIRAcetam 500 MG TAB 1500 MG PO ×2 (08:00→20:59)
[2022-04-24] MEDS: Heparin 5,000 UNITS/ML VIAL 5000 UNITS SC ×2 (08:01→15:24)
--- NOTE | 2022-04-24 09:55 | PTTR_ITS ---
Date of service: 04/24/22 Time of Service: 08:50 PT Notes Visit Reasons: Uncontrolled Seizure Disorder Inpatient Physical Therapy Treatment Note [facility] Date: 04/24/2022 PRECAUTIONS: Fall, seizure, activity as tolerated SUBJECTIVE: Claudio is pleasant and agreeable to participating in PT. He reports that he had a better night, although continues to experience vivid repetitive dreams, otherwise sleeping and feeling well. His is present during session, stating that she also appreciates improvements in his mobility and mentation/behaviors. OBJECTIVE: PAIN: No c/o pain BED MOBILITY/TRANSFERS Sit-stand: S with cueing for large amplitude movements Stand-sit: S with cues for safety and large amplitude movements GAIT Assistive Device: No AD Weight bearing: Full Assist: CGA - occasional SBA Distance: ~500' x 2 Deviation: Trendelenburg gait on L, slow pacing, minimal shuffling gait which immediately improves with single-step cues for large amplitude walking, continued difficulty incorporating arm swings Instructed in stop/go gait, as well as stop/go with half and whole turns, requiring CGA for safety and cueing for large amplitude movement patterns. THEREX: Patient was instructed in myvbd-ns-[id number] transitions with cueing for amplitude with forward and backward walking as well as with turns, [id number]-zu-[id number] with hand clap, alternating standing marches without UE support, seated iiqpixn-[id number]-yrnl reaching, standing reach [id number]-pz-nvbp, seated diagonal patterned reaches and seated alternating UE and LE marching. Patient requires visual, verbal, and tactile cueing for appropriate exercise performance, specifically with multi-step activities, throughout. He was able to tolerate isv-zi-vzhty with hand clap activity with verbal and visual distraction today. Patient also completes NuStep biking x10 minutes for large amplitude alternating UE and LE coordination. ASSESSMENT: Slightly improved safety with transfers and ambulation with single- step cueing for large amplitude movement patterns, demonstrating improved cognitive and verbal abilities with conversation and with following stop/go and turning commands. He also demonstrates improved ability to follow and complete multi-step activities, although does require verbal, visual and/or tactile cueing most of the time. With patient's consistently improving mobility and cognitive processing, patient may be able to return to home with , with 24/7 care and participation in Parkinson's management PT programs, versus discharge to SNF for continued balance retraining for safety. PLAN: Continue with gait training, as well as with balance retraining for improved safety with mobility and activity tolerance. TREATMENT CODE/TIME: 32 minutes; [id number] x2 (08:50)
[2022-04-24 11:24] VITALS: BP 103/79; PULSE 80; RESP 16; TEMP 35.8; O2SAT 95
--- NOTE | 2022-04-24 13:31 | PGE_ITS ---
Date of Service Date of service: 04/24/22 Time of Service: 13:31 Assessment and Plan Assessment and plan (1) Unresponsive episode: Status: Acute Assessment and plan: Resolved w/o recurrence. HSV negative. WNV on CSF pending. (2) Seizure: Status: Chronic Assessment and plan: Continue increased dose of keppra, per [facility] recommendations. Previously hospitalized at [facility] for continuous EEG. No seizure activity noted. (3) Parkinson's disease: Status: Chronic Assessment and plan: Neurology increased sinemet dosage. PT and OT reconsulted; working well with therapies (4) Cognitive impairment: Status: Acute Assessment and plan: I suspect that this is, in fact, behavioral disturbance due to Parkinson's dementia vs post-ictal state. He is improving and is more alert and oriented. (5) Dementia with behavioral disturbance: Status: Suspected Assessment and plan: As above. AM Seroquel working well. Having evening agitation so will schedule late afternoon seroquel; adjust timing with onset of any behavior issues that have a pattern related to time of day. Prazosin added at night for vivid dreams that he states are not nightmares but are bothersom / agitating. (6) DVT prophylaxis: Status: Acute Assessment and plan: SC heparin (7) Discharge planning issues: Status: Acute Assessment and plan: Full code at this time SNF referrals sent; not returning to the [facility] for further rehab. If continues to improve and behavior disturbances improve and can manage him at home, will likely d/c to home. Subjective Subjective Patient reports: tolerating a regular diet and afebrile; denies nausea, vomiting or shortness of breath Interval history since last seen: He had a good night w/o any behavior disturbances. Exam Narrative Exam Narrative: General: Sitting in chair. Pleasant and cooperative. in room. HEENT: sclera clear. MMM Heart: RRR, no murmur Lungs: CTAB Abdomen: soft, nontender, nondistended Extremities: no edema BLEs. No rigidity, cogwheeling. NeuroL No cogwheel rigidity. No masked facies appearance. Objective Last Vital Signs Temp 35.8 C L 04/24/22 11:24 Pulse 80 04/24/22 11:24 Resp 16 04/24/22 11:24 BP 103/79 07/02/22 11:24 Pulse Ox 95 04/24/22 11:24
[2022-04-24] MEDS: QUEtiapine 25 MG TAB PO (15:24)
[2022-04-24 15:34] VITALS: BP 104/72; PULSE 85; RESP 16; TEMP 36.7; O2SAT 96
[2022-04-24] MEDS: Gabapentin 100 MG CAP PO (20:59)
[2022-04-24] MEDS: Prazosin 1 MG CAP 2 MG PO (20:59)
[2022-04-24] MEDS: Melatonin 3 MG TAB 6 MG PO (20:59)
[2022-04-24 23:39] VITALS: BP 105/75; PULSE 84; RESP 16; TEMP 36.8; O2SAT 96
[2022-04-25 07:26] VITALS: BP 124/76; PULSE 70; RESP 19; TEMP 36.7; O2SAT 97
[2022-04-25] MEDS: Heparin 5,000 UNITS/ML VIAL 5000 UNITS SC (08:40)
[2022-04-25] MEDS: Carbidopa 25/Levodopa 100 TAB PO (08:40)
[2022-04-25] MEDS: levETIRAcetam 500 MG TAB 1500 MG PO (08:40)
[2022-04-25] MEDS: Hydrocortisone 1% CR 30 GM TUBE TP (08:40)
[2022-04-25] MEDS: Docusate Sodium 100 MG CAP PO (08:41)
[2022-04-25] MEDS: Multivitamin w/Minerals TAB 1 TAB PO (08:41)
[2022-04-25] MEDS: Cyanocobalamin 500 MCG TAB 1000 MCG PO (08:41)
[2022-04-25] MEDS: Vitamins B Comp w/C TAB 1 TAB PO (08:41)
[2022-04-25] MEDS: Atorvastatin 20 MG TAB PO (08:41)
--- NOTE | 2022-04-25 09:32 | DSE_ITS ---
Date of service: 04/25/22 Time of Service: 09:32 DS: Diagnosis Discharge Diagnosis (1) Unresponsive episode: Status: Acute (2) Seizure: Status: Chronic (3) Parkinson's disease: Status: Chronic (4) Cognitive impairment: Status: Acute (5) Dementia with behavioral disturbance: Status: Suspected (6) DVT prophylaxis: Status: Acute (7) Discharge planning issues: Status: Acute Discharge Plan Disposition Patient Disposition: HOME W/HOME HEALTH SERVICE Condition: Improving Discharge Details Reason For Visit: Uncontrolled Seizure Disorder, Parkinson's Dis. Admit Date/Time: 04/17/22 16:55 Admit Provider: Mic Price Attending Provider: Mic Price Primary Care Provider: Jaylin Norris [facility] Course Hospital Course: This is a 71-year-old male patient who lives in local alf who was brought to the ED because of seizures.? He was found to be subtherapeutic on his Keppra and loaded with IV Keppra with an increase in dosing after consultation with [facility] neurology.? If the patient is not doing well with increasing Keppra and controlling seizures, [facility] neurology said that they could take the patient in transfer for continuous EEG and treatment over the weekend.? Patient is a full code.? In the ED patient was found to have no other ongoing issues other than ex acerbation of his dementia and possible behavioral abnormalities which was thought to be occurring in the alf.? They thought also the patient may have had a UTI and restarted Levaquin which was not continued with urine being clean in the ED upon admission.? He still has slight agitation and Ativan will be used as needed.? His Parkinson's disease is advanced with some dementia according to the .? See ED review below: currently intermittently posturing right upper extremity in flexed position behind head as well as having a right gaze preference, no generalized tonic- clonic activity, hemodynamically stable and afebrile, appears slightly dry, likely in status epilepticus with partial seizures, must consider electrolyte abnormality versus intracranial process such as edema or hemorrhage however less likely versus component of delirium versus must consider UTI versus subtherapeutic on Keppra.? Labs imaging will attempt to contact [facility] neurology patient will likely need continuous EEG will start patient on any telemetry would like to avoid further benzodiazepine given patient's age and mental status Patient loaded with fosphenytoin given likely subtherapeutic Keppra, has improved from mental status standpoint following commands moving all extremities much more coherent and interactive with his speech.? Spoke with [facility] neurology and attempt to have patient transferred for continuous EEG given concern for 2 to 3 days of status epilepticus.? Given capacity issue at [facility] they are unable to accept him at this time. Consult with Evi Rodriguez of neurology who suggests increasing patient's Keppra to 1500 mg twice daily and says that we can discontinue the fosphenytoin at this time.? If seizure activity worsens/continues Dr. Steve says to reach back out this weekend and they will be able to reconsider taking patient for stat EEG.? Patient and family are amenable to this plan.? Patient be admitted for close observation and loading of Keppra. Neurology consulted. The unresponsive episode was suspected to be syncopal in the setting of hypotension, but also may have been a seizure with post-ictal state. His CT head was negative. An EEG of 5 hours duration (he pulled off electrodes) showed background slowing but no seizure activity / foci. His mental status improved as did his movements / gait with an increase in his sinemet dosing. He worked well with PT. OT also involved and was helpful in assisting with difficulties that associated with his Parkinson's. His was present for several PT sessions and has confidence that she can now manage him at home. Evening time behavioral disturbances resolved with initiation of seroquel; AM dosing along with a 4 PM dosing. He also described vivid dreams, not nightmares. These did cause some increased level of alertness and interferred with sleep. Prazosin initiated and at the time of d/c he had taken a dose on 2 nights with some improvement per his account. Follow up with PCP in 1-2 weeks. Follow up with neurology, Dr Carlos, in 1-2 months. Home Meds and New Rx's Prescriptions: New quetiapine 25 mg Tablet See Rx Instructions .ROUTE .COMPLEX PRNQty: 60 0RF Rx Instructions: 1 tablet as needed in the AM 1 tablet scheduled daily at 4 PM acetaminophen 325 mg Tablet 650 mg PO Q4H PRN PRNQty: 0 0RF polyethylene glycol 3350 17 gram Powder In Packet 17 g PO DAILY PRN PRN (Reason: Constipation) Qty: 0 0RF levetiracetam 500 mg Tablet 1,500 mg PO BID Qty: 180 0RF prazosin 1 mg Capsule 2 mg PO HS Qty: 30 0RF lorazepam 0.5 mg Tablet 0.5 mg PO Q4H PRN PRNQty: 15 0RF cyanocobalamin (vitamin B-12) [Vitamin B-12] 500 mcg Tablet 1,000 mcg PO DAILY Qty: 0 0RF carbidopa-levodopa 25-100 mg Tablet 2 tab PO 0800,1300,2000 Qty: 180 0RF Continued atorvastatin 20 mg Tablet 20 mg PO DAILY baclofen 10 mg Tablet 10 mg PO BID PRN PRN nitroglycerin 0.4 mg Tablet, Sublingual 0.4 mg sublingual PRN PRN vitamin B complex Tablet 1 tab PO 1XD multivitamin with minerals Tablet 1 tab PO DAILY melatonin 5 mg Tablet 6 mg PO PRN PRN gabapentin 100 mg Capsule 100 mg PO QHS docusate sodium 100 mg Tablet 100 mg PO DAILY Discontinued levofloxacin [Levaquin] 750 mg Tablet 750 mg PO Q24W lorazepam [Ativan] 1 mg Tablet 1 mg PO 4XD levetiracetam 750 mg Tablet 750 mg PO BID carbidopa-levodopa 25-100 mg Tablet 1 tab PO TID Discharge Instructions Instructions: Parkinson Disease (DC) Stand Alone Forms: Nursing Discharge Form Referrals: Jaylin Norris [Primary Care Provider] - (Please call the office on Tuesday to schedule an appointment to be seen in 1-2 weeks) Anastacia Carlos MD [ [facility] STAFF PHYSICIAN] - (Seizure disorder and Parkinson's Disease. Please call the office on Tuesday to schedule an appointment to be seen in 1-2 months) Activity:: Activity as Tolerated Equipment/Supplies:: Hospital bed ordered Diet:: Resume usual home diet Discharge Orders Discharge Orders: Discharge Order (Routine); Ordered 04/25/22 Ordered By: Lon Wilder Discharge Data Discharge Date/Time-TO BE ENTERED AT DEPARTURE: 04/25/22 10:23 DS: Summary Time Spent with Patient providing and/or coordinating discharge services: Greater than 30 minutes Status at Discharge Functional status at discharge: independent ambulation Overall status at discharge: patient is back to baseline Mental Status: mental status grossly normal Speech and Movement: speech and movement normal Mood: congruent mood Affect: normal affect Exam Narrative Exam Narrative: General: Pleasant and cooperative. HEENT: sclera clear. MMM Heart: RRR, no murmur Lungs: CTAB Abdomen: soft, nontender, nondistended Extremities: no edema BLEs. NeuroL No cogwheel rigidity. No masked facies appearance. Psych Mental Status: mental status grossly normal Speech and Movement: speech and movement normal Mood: congruent mood Affect: normal affect DS: Data Vitals/I&O Vitals and I&O: Vital Signs Temperature 36.7 C 04/25/22 07:26 Temperature Source Tympanic 04/25/22 07:26 Pulse 70 04/25/22 07:26 Pulse Rhythm Regular 04/25/22 01:02 Pulse 67 04/20/22 08:01 Respiratory Rate 19 04/25/22 07:26 Respiratory Effort 04/25/22 01:02 Respiratory Depth Shallow 04/25/22 01:02 Respiratory Pattern Normal 04/25/22 01:02 Blood Pressure 124/76 04/25/22 07:26 Blood Pressure Mean 106 04/20/22 08:00 Blood Pressure Position Supine 04/19/22 19:43 Pulse Oximetry 97 04/25/22 07:26 Oxygen Delivery Method Room Air 04/25/22 07:26 Oxygen Flow Rate 0 04/25/22 07:26 Pain Level 0 04/25/22 07:26 Comment 04/17/22 03:05 Intake & Output 04/24/22 04/24/22 04/25/22 11:59 23:59 11:59 Intake Total 370 / 370 Output Total 300 / 300 Balance 70 / 70 Weight 83.1 kg Intake: Oral 370 / 370 Output: Urine 300 / 300 Other: Urine Color Yellow Yellow Urine Appearance Clear Clear Urine Odor None Comment diaper change voided in toilet and mildly incont very little in diaper Stool Size Moderate Stool Characteristics Formed Brown Voiding Methods Diaper Toilet Toilet Incontinent Diaper Incontinent PFSH All Active Problems Altered mental status (Acute) Unresponsive episode (Acute) Discharge planning issues (Acute) DVT prophylaxis (Acute) Cognitive impairment (Acute) Parkinson's disease (Chronic) Seizure (Chronic) Medical History Alcohol abuse CAD (coronary artery disease) Chronic low back pain Hyperlipidemia Surgical History S/P cataract extraction Social History Smoking/Tobacco Use Status: Unknown Smoking risk assessment performed?: Yes Additional Social history: patient unable to answer questions.
--- NOTE | 2022-04-25 09:43 | PDOC.HHF2F_ITS ---
Home Health Certification Home Health Certification: 1. Encounter Date and Reason I certify that Claudio Upton was seen by Lon Wilder MD on 04/25/22 and that I had a [id number] encounter with this patient that meets the physician face to face encounter requirements. 2. Clinical Findings Supporting Skilled Need and Homebound Status I certify that home health services are medically necessary, include either intermittent detention and/or physical/speech therapy, and that this pat ient is homebound in that absences from the home require considerable and taxing effort and are infrequent or of short duration, or are attributable to the need to receive medical care. [X] (a) Attached documentation from encounter provides clinical findings supporting skilled need and homebound status (including what assistance patient requires to leave the home). The encounter with the patient was in whole, or in part, for the following medical condition, which is the primary reason for home health care: Uncontrolled Seizure Disorder, Parkinson's Dis. [facility]:Monitor medications. Monitor neurology status; Parkinson's disease and seizure disorder Physical Therapy and Occupational Therapy: Evaluate and treat movement disorder secondary to Parkinson's Disease. Speech Therapy: [employer] CONSULTANT: assist patient and family with obtaining appropriate services. Homebound:Requires assistance of another person out of the home d/t gait instability. 3. Certification and Authentication I certify that I composed the above information based on my clinical judgement relating to this patient's medical condition and, if applicable, clinical findings communicated to me by the NPP or inpatient physician who performed the Home Health Referral. All further orders will be obtained through Jaylin Norris (Community Based Physician - PCP)
--- NOTE | 2022-04-25 09:56 | PDOC.CMDIS ---
- If Service Date Differs Date of service: 04/25/22 Time of Service: 09:56 LACE Index Scoring Tool - Questions: Length of Stay (in days): 7 - 13 Acuity (Admit via E.D.?): Yes E.D. Visits: 1 (patient has Parkinsons Disease) - Answers: Total Score: 9 Risk of Readmission: Low Risk Care Management Discharge Reason for Hospitalization: Uncontrolled seizure disorder. Discharge Plan: Claudio will be discharged home with his with new home health services through [facility]. He will receive nursing, PT, OT and PRODUCT MANAGEMENT MANAGER. Claudio will follow up with his plan of care as prescribed and with his community providers including Neurology and his PCP. He will transport home via private vehicle with his [place]. [facility] was contactred yesterday by CM regarding the anticipated discharge today and the need for services. Patient/Family Education Needs: Review of discharge instructions, medications, activity, limitations, follow up plan and discuss Ask Me Three. Services Needed at Discharge: Home Health Care Services
--- NOTE | 2022-04-27 10:14 | PT.INDS ---
PT Notes Visit Reasons: Uncontrolled Seizure Disorder, Parkinson's Dis. Inpatient Physical Therapy Discharge Summary Dates: 04/27/2022 Dates of Service: 04/21 to 04/24/2022 SUBJECTIVE: Cooperative response to commands appropriately. Has a masklike facial expressions OBJECTIVE: Pain: No complaints of pain offered ROM: He had mild hypomobility with all articular structures but without pain on movement Strength: Has full voluntary movement with strength generally rated +3/5 Neuro: Hyporeflexive but symmetrical, negative Babinski's bilaterally, negative spasticity or rigidity, fingertips to nose is an accurate but appears to be more from his visual deficit.? No ataxia noted.? Rapid repetitive arm movements intact.? Heel to knee is difficult.? Proprioception intact BED MOBILITY/TRANSFERS: Supine-sit supervision with cueing Sit-supine supervision with cueing Sit-stand supervision with cueing Stand-sit supervision with cueing GAIT: Ambulated 500 feet x 2 without an assistive device and minimal contact guarding. Has a shuffling type gait with poor arm swing, and an anterior flexed posture BALANCE: Static sitting stable Dynamic sitting stable Static standing stable Dynamic standing stable with supervision ASSESSMENT: [] GOALS Met DISCHARGE PLAN/RECOMMENDATIONS: Home with services [specify] Home health PT, OT and LEVEL VIAL INSPECTOR Home with outpatient PT if he progresses with his rehab at home, he may benefit from outpatient physical therapy for specific Parkinson's disease rehabilitation program at [facility] Disclaimer: This note was created using [employer] voice recognition software. It was reviewed for major content. However, there may be multiple small discrepancies and errors due to the voice recognition aspects of the software.
[2022-04-27 22:05] LABS: West Nile Virus PCR, CSF Negative (Negative)
--- NOTE | 2022-04-28 16:13 | W.PM.PROGNOT ---
Date of Service Date of service: 04/22/22 Time of Service: 16:13 Assessment and Plan Assessment and plan (1) Unresponsive episode: Status: Resolved Assessment and plan: Suspect syncope in setting of hypotension; however, need to also consider seizure or a post-ictal state, or a CVA. Consider also a side effect of keppra. CT head negative. BPs normally low, per . He did receive an IV bolus 1L. No further episodes. Echocardiogram with EF of 60%. Was in NSR during the episode on tele. NeurocEQO. EEG performed but only able to obtain over a 5 hour period; he pulled off electrodes. No seizure focus/activity noted. + generalized slowing. LP WNL. Paraneoplastic lab, HSV PCR and West Nile Virus pending. (2) Seizure: Status: Chronic Assessment and plan: Continue increased dose of keppra, per [facility] recommendations. See above Previously hospitalized at [facility] for continuous EEG. No seizure like activity noted. (3) Parkinson's disease: Status: Chronic Assessment and plan: Neurology increased sinemet dosage. PT and OT reconsulted. Improved movement (4) Cognitive impairment: Status: Acute Assessment and plan: I suspect that this is, in fact, behavioral disturbance due to Parkinson's dementia vs post-ictal state. He is improving and is more alert and oriented. (5) Dementia with behavioral disturbance: Status: Suspected Assessment and plan: As above. Continue prn ativan, however we are finding that seroquel is also effective. Consider scheduled seroquel; timing with onset of any behavior issues that have a pattern related to time of day. (6) DVT prophylaxis: Status: Deleted Assessment and plan: SC heparin (7) Discharge planning issues: Status: Deleted Assessment and plan: Full code at this time SNF referrals sent; not returning to the [facility] for further rehab. Possibly home if behaviors are better controlled. Subjective Subjective Patient reports: no new complaints, tolerating a regular diet and afebrile; denies nausea, vomiting or shortness of breath Exam Narrative Exam Narrative: General: pt sitting in chair. Conversant. + dysarthria / baseline. HEENT: sclera clear. MMM Heart: RRR, no murmur Lungs: CTAB Abdomen: soft, nontender, nondistended Extremities: no edema BLEs. No rigidity, cogwheeling. Objective Last Vital Signs Temp 36.7 C 04/25/22 07:26 Pulse 70 04/25/22 07:26 Resp 19 04/25/22 07:26 BP 124/76 04/25/22 07:26 Pulse Ox 97 04/25/22 07:26 Laboratory Results - last 24 hr 04/20/22 18:33 CSF West Nile RNA Negative
== END 2022-04-25 10:23 | disposition home health service (06) | DRG 101 ==
LOC: ER 19:37 → MS 20:24 → ICU 04-18 09:10 → MS 04-20 13:37
PROVIDERS: Family Medicine; Internal Medicine; Admitting Provider Family Medicine; Emergency Provider Emergency Medicine; PCP Internal Medicine; Visit Provider Family Medicine
DX: G40.909 Epilepsy, unspecified, not intractable, without status epilepticus (principal); F02.81 Dementia in other diseases classified elsewhere, unspecified severity, with behavioral disturbance; G31.83 Neurocognitive disorder with Lewy bodies; Z79.899 Other long term (current) drug therapy; R41.89 Other symptoms and signs involving cognitive functions and awareness; R40.4 Transient alteration of awareness; I95.9 Hypotension, unspecified; I25.10 Atherosclerotic heart disease of native coronary artery without angina pectoris; G89.29 Other chronic pain; M54.50 Low back pain, unspecified; E78.5 Hyperlipidemia, unspecified; G47.52 REM sleep behavior disorder; R47.1 Dysarthria and anarthria; F10.10 Alcohol abuse, uncomplicated
CPT/HCPCS: 36415; 80048; 80053; 82550; 82945; 84145; 85027; 86255; 87081; 87529; 87635; 87798; 89050; 89051; 93005; 93306; 95711; 95720; 96361; 96365; 96367; 97162; 97163; 97165; 97530; 97535; 99223; 99232; 99285; 70450; 71045; 80177; 81003; 83605; 83735; 84157; 84443; 84484; 85025; 85610; 85730; 86140; 87070; 87086; 87205; 93010; 99220; 99233; 99239; 99291; G0378; J1644; J1953; J2060; J3420; J3490

== ENCOUNTER → 2022-06-07 10:08 | Outpatient (BNVA) | payer MEDICARE, OTHER, SELFPAY | PROVIDERS: PCP Internal Medicine; Referring Provider Internal Medicine; Visit Provider Psychiatry & Neurology Neurology | DX: G20 Parkinson's disease (principal); G40.109 Localization-related (focal) (partial) symptomatic epilepsy and epileptic syndromes with simple partial seizures, not intractable, without status epilepticus; G47.52 REM sleep behavior disorder; K59.00 Constipation, unspecified | CPT/HCPCS: 99215; G2212 ==

== ENCOUNTER 2022-06-29 20:11 | Outpatient (REF) | payer MEDICARE, OTHER, SELFPAY ==
[2022-06-29 14:40] LABS: ALT 14 U/L (16-63); AST 19 U/L (15-37); Albumin 3.8 g/dL (3.4-5.0); Alkaline Phosphatase 80 U/L (46-116); Anion Gap 6.7 mmol/L (3-11); BUN 15 mg/dL (7-18); Bilirubin, Total 0.5 mg/dL (0.2-1.0); CO2 30.3 mmol/L (21.0-32.0); CREATININE 0.9 mg/dL (0.70-1.30); Calculated LDL 53 mg/dL (<100); Chloride 103 mmol/L (98-107); Cholesterol 116 mg/dL (<200); Estimated GFR 91.31 (mL/min/1.73m2); Glucose 110 mg/dL (74-106); HDL Cholesterol 53 mg/dL (40-60); Potassium 4.2 mmol/L (3.5-5.1); Sodium 140 mmol/L (136-145); Total Protein 7.5 g/dL (6.4-8.2); Triglyceride 52 mg/dL (<150)
== END 2022-06-29 20:12 | disposition home or self-care (01) ==
LOC: NCHCN 20:11
PROVIDERS: PCP Internal Medicine; Visit Provider Internal Medicine
DX: E78.5 Hyperlipidemia, unspecified (principal); R73.01 Impaired fasting glucose; I25.10 Atherosclerotic heart disease of native coronary artery without angina pectoris
CPT/HCPCS: 80053; 80061

== ENCOUNTER 2022-07-15 22:12 | Outpatient (REF) | payer MEDICARE, OTHER, SELFPAY | END 2022-07-15 22:13 | disposition home or self-care (01) | LOC: NCHCN 22:12 | PROVIDERS: PCP Internal Medicine; Visit Provider Family Medicine | DX: R39.9 Unspecified symptoms and signs involving the genitourinary system (principal) | CPT/HCPCS: 87086 ==

== ENCOUNTER → 2022-08-09 09:45 | Outpatient (BNVA) | payer MEDICARE, OTHER, SELFPAY | PROVIDERS: PCP Internal Medicine; Referring Provider Internal Medicine; Visit Provider Psychiatry & Neurology Neurology | DX: R41.3 Other amnesia (principal); G40.109 Localization-related (focal) (partial) symptomatic epilepsy and epileptic syndromes with simple partial seizures, not intractable, without status epilepticus; G20 Parkinson's disease; G47.52 REM sleep behavior disorder; K59.00 Constipation, unspecified | CPT/HCPCS: 99215 ==

== ENCOUNTER → 2022-12-06 10:29 | Outpatient (BNVA) | payer MEDICARE, OTHER, SELFPAY | PROVIDERS: PCP Internal Medicine; Visit Provider Psychiatry & Neurology Neurology | DX: F03.918 Unspecified dementia, unspecified severity, with other behavioral disturbance (principal); G47.52 REM sleep behavior disorder; G47.33 Obstructive sleep apnea (adult) (pediatric); G20 Parkinson's disease; G40.109 Localization-related (focal) (partial) symptomatic epilepsy and epileptic syndromes with simple partial seizures, not intractable, without status epilepticus; K59.00 Constipation, unspecified; K11.7 Disturbances of salivary secretion; R49.8 Other voice and resonance disorders; R47.1 Dysarthria and anarthria | CPT/HCPCS: 99214 ==

== ENCOUNTER → 2023-05-24 10:16 | Outpatient (BNVA) | payer MEDICARE, OTHER, SELFPAY | PROVIDERS: PCP Internal Medicine; Visit Provider Psychiatry & Neurology Neurology | DX: F03.918 Unspecified dementia, unspecified severity, with other behavioral disturbance (principal); G47.33 Obstructive sleep apnea (adult) (pediatric); G40.109 Localization-related (focal) (partial) symptomatic epilepsy and epileptic syndromes with simple partial seizures, not intractable, without status epilepticus; G20 Parkinson's disease; G47.52 REM sleep behavior disorder; R47.1 Dysarthria and anarthria; K11.7 Disturbances of salivary secretion; K59.00 Constipation, unspecified; R49.8 Other voice and resonance disorders | CPT/HCPCS: 99214 ==

== ENCOUNTER 2023-06-29 08:45 | Outpatient (REF) | payer MEDICARE, OTHER, SELFPAY ==
[2023-06-29 15:01] LABS: ALT 27 U/L (16-63); AST 20 U/L (15-37); Albumin 3.8 g/dL (3.4-5.0); Alkaline Phosphatase 91 U/L (46-116); Anion Gap 3.9 mmol/L (3-11); BUN 14 mg/dL (7-18); Bilirubin, Total 0.5 mg/dL (0.2-1.0); CO2 30.1 mmol/L (21.0-32.0); CREATININE 0.9 mg/dL (0.70-1.30); Calcium 9.1 mg/dL (8.5-10.1); Chloride 104 mmol/L (98-107); Estimated GFR 90.74 (mL/min/1.73m2); Glucose 112 mg/dL (74-106); Potassium 4.4 mmol/L (3.5-5.1); Sodium 138 mmol/L (136-145); Total Protein 7.4 g/dL (6.4-8.2)
== END 2023-06-29 08:46 | disposition home or self-care (01) ==
LOC: NCHCN 08:45
PROVIDERS: PCP Internal Medicine; Visit Provider Internal Medicine
DX: F10.10 Alcohol abuse, uncomplicated (principal); R73.01 Impaired fasting glucose; E66.3 Overweight; Z87.898 Personal history of other specified conditions
CPT/HCPCS: 80053

== ENCOUNTER → 2023-11-21 13:03 | Outpatient (BNVA) | payer MEDICARE, OTHER, SELFPAY | PROVIDERS: PCP Internal Medicine; Referring Provider Internal Medicine; Visit Provider Psychiatry & Neurology Neurology | DX: G20.C Parkinsonism, unspecified (principal); G40.109 Localization-related (focal) (partial) symptomatic epilepsy and epileptic syndromes with simple partial seizures, not intractable, without status epilepticus; G47.52 REM sleep behavior disorder; K59.00 Constipation, unspecified; K11.7 Disturbances of salivary secretion; R49.8 Other voice and resonance disorders; R47.1 Dysarthria and anarthria | CPT/HCPCS: 99214 ==

== ENCOUNTER → 2024-02-21 11:15 | Outpatient (BNVA) | payer MEDICARE, OTHER, SELFPAY | PROVIDERS: PCP Internal Medicine; Referring Provider Internal Medicine; Visit Provider Psychiatry & Neurology Neurology | DX: G40.109 Localization-related (focal) (partial) symptomatic epilepsy and epileptic syndromes with simple partial seizures, not intractable, without status epilepticus (principal); G47.52 REM sleep behavior disorder; K59.00 Constipation, unspecified; K11.7 Disturbances of salivary secretion; R49.8 Other voice and resonance disorders; R47.1 Dysarthria and anarthria | CPT/HCPCS: 99214 ==

== ENCOUNTER 2024-07-06 08:55 | Outpatient (REF) | payer MEDICARE, SELFPAY ==
[2024-07-06 15:43] LABS: HCT 43.8 % (40.0-50.0); HGB 14.6 g/dL (13.5-17.5); MCH 31.1 pg (27.0-33.0); MCHC 33.3 % (32.0-36.0); MCV 93 fL (80-95); MPV 9.7 fL (8.0-11.0); Platelet Count 310 10^3/uL (130-400); RDW-SD 41.6 fL; WBC 8.66 10^3/uL (4.4-10.8)
[2024-07-06 16:15] LABS: Hemoglobin A1C 5.6 % (<5.7)
[2024-07-06 16:47] LABS: ALT 26 U/L (16-63); AST 20 U/L (15-37); Albumin 4.1 g/dL (3.4-5.0); Alkaline Phosphatase 115 U/L (46-116); BUN 15 mg/dL (7-18); Bilirubin, Total 0.42 mg/dL (0.2-1.0); CREATININE 0.9 mg/dL (0.70-1.30); Calcium 9.3 mg/dL (8.5-10.1); Calculated LDL 60 mg/dL (<100); Chloride 105 mmol/L (98-107); Cholesterol 135 mg/dL (<200); Estimated GFR 90.18 (mL/min/1.73m2); Glucose 109 mg/dL (74-106); HDL Cholesterol 61 mg/dL (40-60); Potassium 4.9 mmol/L (3.5-5.1); Sodium 144 mmol/L (136-145); Triglyceride 71 mg/dL (<150)
== END 2024-07-06 08:56 | disposition home or self-care (01) ==
LOC: NCHCN 08:55
PROVIDERS: PCP Internal Medicine; Visit Provider Internal Medicine
DX: E78.5 Hyperlipidemia, unspecified (principal); R73.03 Prediabetes
CPT/HCPCS: 80053; 80061; 85027; 83036

== ENCOUNTER 2024-07-11 17:42 | Outpatient (REF) | payer MEDICARE, SELFPAY ==
[2024-07-11 14:58] LABS: TSH (W/Ref FT4) 0.96 uIU/mL (0.36-3.74)
== END 2024-07-11 17:43 | disposition home or self-care (01) ==
LOC: NCHCN 17:42
PROVIDERS: PCP Internal Medicine; Visit Provider Internal Medicine
DX: R61 Generalized hyperhidrosis (principal)
CPT/HCPCS: 84443

== ENCOUNTER → 2024-08-21 10:57 | Outpatient (BNVA) | payer MEDICARE, OTHER, SELFPAY | PROVIDERS: PCP Internal Medicine; Visit Provider Psychiatry & Neurology Neurology | DX: M54.50 Low back pain, unspecified (principal); G89.29 Other chronic pain; G40.109 Localization-related (focal) (partial) symptomatic epilepsy and epileptic syndromes with simple partial seizures, not intractable, without status epilepticus; G47.52 REM sleep behavior disorder | CPT/HCPCS: 99215 ==

== ENCOUNTER → 2024-11-20 12:14 | Outpatient (BNVA) | payer MEDICARE, OTHER, SELFPAY | PROVIDERS: PCP Internal Medicine; Visit Provider Psychiatry & Neurology Neurology | DX: G40.109 Localization-related (focal) (partial) symptomatic epilepsy and epileptic syndromes with simple partial seizures, not intractable, without status epilepticus (principal); R47.1 Dysarthria and anarthria | CPT/HCPCS: 99214 ==

== ENCOUNTER → 2025-03-19 12:37 | Outpatient (BNVA) | payer MEDICARE, OTHER, SELFPAY | PROVIDERS: PCP Internal Medicine; Referring Provider Internal Medicine; Visit Provider Psychiatry & Neurology Neurology | DX: F03.918 Unspecified dementia, unspecified severity, with other behavioral disturbance (principal); G20.C Parkinsonism, unspecified; G40.109 Localization-related (focal) (partial) symptomatic epilepsy and epileptic syndromes with simple partial seizures, not intractable, without status epilepticus; G47.52 REM sleep behavior disorder; K59.00 Constipation, unspecified; K11.7 Disturbances of salivary secretion; R49.8 Other voice and resonance disorders; R47.1 Dysarthria and anarthria; M54.50 Low back pain, unspecified; G89.29 Other chronic pain | CPT/HCPCS: 99214 ==

== ENCOUNTER 2025-07-11 15:25 | Outpatient (REF) | payer MEDICARE, OTHER, SELFPAY ==
[2025-07-11 16:00] LABS: HCT 40.0 % (40.0-50.0); HGB 13.6 g/dL (13.5-17.5); MCH 30.4 pg (27.0-33.0); MCHC 34.0 % (32.0-36.0); MCV 90 fL (80-95); MPV 9.5 fL (8.0-11.0); Platelet Count 266 10^3/uL (130-400); RBC 4.47 10^6/uL (4.36-5.78); RDW 11.9 % (11.8-14.1); RDW-SD 38.7 fL; WBC 7.40 10^3/uL (4.4-10.8)
[2025-07-11 16:28] LABS: ALT 23 U/L (16-63); AST 16 U/L (15-37); Albumin 3.9 g/dL (3.4-5.0); Alkaline Phosphatase 103 U/L (46-116); Anion Gap 5.9 mmol/L (3-11); BUN 13 mg/dL (7-18); Bilirubin, Total 0.4 mg/dL (0.2-1.0); CO2 30.1 mmol/L (21.0-32.0); Calcium 9.0 mg/dL (8.5-10.1); Calculated LDL 68 mg/dL (<100); Chloride 106 mmol/L (98-107); Cholesterol 139 mg/dL (<200); Estimated GFR 89.62 (mL/min/1.73m2); Glucose 114 mg/dL (74-106); HDL Cholesterol 61 mg/dL (>or=40); Potassium 4.2 mmol/L (3.5-5.1); Sodium 142 mmol/L (136-145); Total Protein 7.5 g/dL (6.4-8.2); Triglyceride 50 mg/dL (<150)
[2025-07-11 16:58] LABS: Hemoglobin A1C 5.5 % (<5.7)
== END 2025-07-11 15:26 | disposition home or self-care (01) ==
LOC: NCHCN 15:25
PROVIDERS: PCP Internal Medicine; Visit Provider Internal Medicine
DX: E78.5 Hyperlipidemia, unspecified (principal); R73.03 Prediabetes
CPT/HCPCS: 80053; 80061; 85027; 83036

== ENCOUNTER → 2025-07-22 13:01 | Outpatient (BNVA) | payer MEDICARE, OTHER, SELFPAY | PROVIDERS: PCP Internal Medicine; Referring Provider Internal Medicine; Visit Provider Psychiatry & Neurology Neurology | DX: G20.C Parkinsonism, unspecified (principal); F03.918 Unspecified dementia, unspecified severity, with other behavioral disturbance; G40.109 Localization-related (focal) (partial) symptomatic epilepsy and epileptic syndromes with simple partial seizures, not intractable, without status epilepticus; G47.52 REM sleep behavior disorder; K59.00 Constipation, unspecified; K11.7 Disturbances of salivary secretion; R47.1 Dysarthria and anarthria; M54.50 Low back pain, unspecified; G89.29 Other chronic pain | CPT/HCPCS: 99214 ==